=== PATIENT | female | born 1945 | race Caucasian/White ===

== ENCOUNTER 2020-05-20 09:43 | Inpatient (IN) | payer MEDICARE, OTHER ==
[2020-05-20] MEDS ORDERED: Furosemide 20 MG/2 ML VIAL IV ONE ×3 (10:09→16:30)
--- NOTE | 2020-05-20 10:23 | EDM.PDOC ---
ED HPI GENERAL MEDICAL PROBLEM - General Chief Complaint: General Stated Complaint: SWOLLEN LEGS Time Seen by Provider: 05/20/20 09:50 Source of Information: Reports: Patient, Family History Limitations: Reports: No Limitations - History of Present Illness INITIAL COMMENTS - FREE TEXT/NARRATIVE: Patient comes into the emergency department with complaints of bilateral lower extremity swelling. 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 Patient was given 3-day course of antibiotic clindamycin which she is not sure what it was for but did complete that on Saturday however she has continued to increase in swelling in bilateral lower extremities. She also states that she is fallen 3 different times in the last 2 days related to the increase in swelling of lower extremities. She states that her legs are extremely heavy and problematic to get around. She does have peripheral neuropathy related concerns and is on gabapentin to help with that. She states that she does not have much feeling in either lower extremities on a normal day. She denies having any fever, nausea vomiting, or chest pain. She does state that she has an increased amount of fatigue and shortness of breath in the last 2 days unable to ambulate as long as she normally does. She denies any other concerns or complaints at this time. She denies any covid-19 symptoms at the present time. Onset: Gradual Location: Reports: Lower Extremity, Left, Lower Extremity, Right Quality: Reports: Other (heavy feeling ) Severity: Moderate Improves with: Reports: None Worsens with: Reports: None Associated Symptoms: Reports: No Other Symptoms - Related Data Allergies Allergy/AdvReac Type Severity Reaction Status Date / Time Penicillins Allergy Cannot Verified 05/20/20 10:11 Remember solifenacin [From Vesicare] Allergy Cannot Verified 05/20/20 10:12 Remember sodium pentathol Allergy Other Uncoded 05/20/20 10:12 ED ROS GENERAL - Review of Systems Review Of Systems: Comprehensive ROS is negative, except as noted in HPI. Constitutional: Reports: No Symptoms HEENT: Reports: No Symptoms Respiratory: Reports: No Symptoms Cardiovascular: Reports: No Symptoms Endocrine: Reports: No Symptoms GI/Abdominal: Reports: No Symptoms : Reports: No Symptoms Musculoskeletal: Reports: No Symptoms Neurological: Reports: No Symptoms Psychiatric: Reports: No Symptoms Hematologic/Lymphatic: Reports: No Symptoms ED EXAM, GENERAL - Physical Exam Exam: See Below Exam Limited By: No Limitations General Appearance: Alert, WD/WN, No Apparent Distress Throat/Mouth: Normal Inspection, Normal Lips, No Airway Compromise Head: Atraumatic, Normocephalic Neck: Normal Inspection, Supple, Non-Tender, Full Range of Motion Cardiovascular: Normal Peripheral Pulses, Regular Rate, Rhythm, No Edema Peripheral Pulses: 2+: Posterior Tibial (L), Posterior Tibial (R), 4+: Radial (L), Radial (R) GI/Abdominal: Normal Bowel Sounds, Non-Tender, No Distention Back Exam: Normal Inspection, Full Range of Motion Extremities: Pedal Edema (4+ bilateral mid calf edema), Redness Neurological: Alert, Oriented, Normal Cognition Psychiatric: Normal Affect, Normal Mood Skin Exam: Warm, Dry, Intact, No Rash Course - Vital Signs Last Recorded V/S: Last Vital Signs Temp 36.9 C 05/20/20 09:50 Pulse 68 05/20/20 09:50 Resp 16 05/20/20 09:50 BP 108/46 L 05/20/20 09:50 Pulse Ox 99 05/20/20 09:50 - Orders/Labs/Meds Orders: Active Orders 24 hr Category Date Time Status Admission Status [Patient Status] [ADT] Routine ADT 05/20/20 11:18 Ordered EKG Documentation Completion [RC] STAT Care 05/20/20 10:09 Active UA RFX SHIVAM AND CULT IF INDIC [URIN] Stat Lab 05/20/20 10:30 Ordered Sodium Chloride 0.9% [Saline Flush] Med 05/20/20 10:09 Active 10 ml FLUSH ASDIRECTED PRN Peripheral IV Insertion Adult [OM.PC] Stat Oth 05/20/20 10:09 Ordered Medication Orders Sodium Chloride (Saline Flush) 10 ml FLUSH ASDIRECTED PRN PRN Reason: Keep Vein Open Labs: Laboratory Tests 05/20/20 05/20/20 05/20/20 Range/Units 10:28 10:28 10:28 WBC 5.1 (4.0-10.0) x10^3/uL RBC 2.99 L (4.00-5.50) x10^6/uL Hgb 8.7 L (12.0-16.0) g/dL Hct 26.2 L (33.0-47.0) % MCV 87.6 (78.0-93.0) fL MCH 29.1 (26.0-32.0) pg MCHC 33.2 (32.0-36.0) g/dL RDW Coeff of Mal 14.9 (10.0-15.0) % Plt Count 121 L (130-400) x10^3/uL Neut % (Auto) 82.8 H (50.0-80.0) % Lymph % (Auto) 5.3 L (25.0-50.0) % [place] % (Auto) 11.1 H (2.0-11.0) % Eos % (Auto) 0.4 (0.0-4.0) % Baso % (Auto) 0.4 (0.2-1.2) % PT 11.1 (9.5-12.3) SEC INR 1.0 L (2.0-3.5) Sodium 134 L (136-145) mmol/L Potassium 4.2 (3.5-5.1) mmol/L Chloride 99 (98-107) mmol/L Carbon Dioxide 26 (21-32) mmol/L Anion Gap 13.2 (10-20) mmol/L BUN 35 H (7-18) mg/dL Creatinine 1.2 H (0.55-1.02) mg/dL Est Cr Clr Drug Dosing TNP Estimated GFR (MDRD) 44 Glucose 129 H (74-106) mg/dL Lactic Acid (0.4-2.0) mmol/L Calcium 8.2 L (8.5-10.1) mg/dL Corrected Calcium 9.40 (8.5-10.1) mg/dL Total Bilirubin 0.6 (0.2-1.0) mg/dL AST 110 H (15-37) U/L ALT 51 (14-59) U/L Alkaline Phosphatase 428 H (46-116) U/L Troponin I < 0.017 (<=0.056) ng/mL NT-Pro-B Natriuret Pep 2210 H (<=125) pg/mL Total Protein 6.4 (6.4-8.2) g/dL Albumin 2.5 L (3.4-5.0) g/dL Globulin 3.9 Albumin/Globulin Ratio 0.64 07/03/20 Range/Units 10:28 WBC (4.0-10.0) x10^3/uL RBC (4.00-5.50) x10^6/uL Hgb (12.0-16.0) g/dL Hct (33.0-47.0) % MCV (78.0-93.0) fL MCH (26.0-32.0) pg MCHC (32.0-36.0) g/dL RDW Coeff of Mal (10.0-15.0) % Plt Count (130-400) x10^3/uL Neut % (Auto) (50.0-80.0) % Lymph % (Auto) (25.0-50.0) % [place] % (Auto) (2.0-11.0) % Eos % (Auto) (0.0-4.0) % Baso % (Auto) (0.2-1.2) % PT (9.5-12.3) SEC INR (2.0-3.5) Sodium (136-145) mmol/L Potassium (3.5-5.1) mmol/L Chloride (98-107) mmol/L Carbon Dioxide (21-32) mmol/L Anion Gap (10-20) mmol/L BUN (7-18) mg/dL Creatinine (0.55-1.02) mg/dL Est Cr Clr Drug Dosing Estimated GFR (MDRD) Glucose (74-106) mg/dL Lactic Acid 1.9 (0.4-2.0) mmol/L Calcium (8.5-10.1) mg/dL Corrected Calcium (8.5-10.1) mg/dL Total Bilirubin (0.2-1.0) mg/dL AST (15-37) U/L ALT (14-59) U/L Alkaline Phosphatase (46-116) U/L Troponin I (<=0.056) ng/mL NT-Pro-B Natriuret Pep (<=125) pg/mL Total Protein (6.4-8.2) g/dL Albumin (3.4-5.0) g/dL Globulin Albumin/Globulin Ratio Meds: Medications Generic Name Dose Route Start Last Admin Trade Name Freq PRN Reason Stop Dose Admin Sodium Chloride 10 ml 05/20/20 10:09 Saline Flush FLUSH ASDIRECTED PRN Keep Vein Open Discontinued Medications Generic Name Dose Route Start Last Admin Trade Name Gunnarq PRN Reason Stop Dose Admin Furosemide 20 mg 05/20/20 10:09 05/20/20 10:49 Lasix IV 05/20/20 10:10 20 mg ONETIME ONE Administration Departure - Departure Time of Disposition: 11:22 Disposition: Admitted As Inpatient 68 Condition: Fair Clinical Impression: CHF (congestive heart failure) Qualifiers: Heart failure type: unspecified Heart failure chronicity: acute Qualified Code(s): I50.9 - Heart failure, unspecified Fatigue Qualifiers: Fatigue type: unspecified Qualified Code(s): R53.83 - Other fatigue Fluid overload Qualifiers: Hypervolemia type: unspecified Qualified Code(s): E87.70 - Fluid overload, unspecified - Discharge Information *PRESCRIPTION DRUG MONITORING PROGRAM REVIEWED*: Not Applicable *COPY OF PRESCRIPTION DRUG MONITORING REPORT IN PATIENT BIN: Not Applicable Referrals: PCP,None [Primary Care Provider] - Forms: ED Department Discharge Sepsis Event Note (ED) - Evaluation Sepsis Screening Result: No Definite Risk - Focused Exam Vital Signs: Vital Signs Temp Pulse Resp BP Pulse Ox 05/20/20 09:50 36.9 C 68 16 108/46 L 99 - My Orders Last 24 Hours: My Active Orders 05/20/20 10:09 EKG Documentation Completion [RC] STAT Sodium Chloride 0.9% [Saline Flush] 10 ml FLUSH ASDIRECTED PRN Peripheral IV Insertion Adult [OM.PC] Stat 05/20/20 10:30 UA RFX SHIVAM AND CULT IF INDIC [URIN] Stat 05/20/20 11:18 Admission Status [Patient Status] [ADT] Routine - Assessment/Plan Last 24 Hours: My Active Orders 05/20/20 10:09 EKG Documentation Completion [RC] STAT Sodium Chloride 0.9% [Saline Flush] 10 ml FLUSH ASDIRECTED PRN Peripheral IV Insertion Adult [OM.PC] Stat 05/20/20 10:30 UA RFX SHIVAM AND CULT IF INDIC [URIN] Stat 05/20/20 11:18 Admission Status [Patient Status] [ADT] Routine Assessment:: 1. bilateral lower leg edema 2. fluid overload 3. Vascular congestion 4. Acute onset Congestive heart failure Plan: 1. Labs completed in the ER. Results reviewed with the patient 2. IV initiated in the emergency department 3. IV Lasix 20mg given 4. Chest x-ray completed in ER 5. UA ordered in the ER-unable to obtain 6. Consultation completed with Dr. Woodard who is agreeable to admission for further medical management 7. Patient and nursing staff was updated regarding the plan of care 8. Patient and family are agreeable to the above plan of care 9. All questions and concerns were addressed with the patient and family prior to discharge
[2020-05-20 11:00] LABS: ANION GAP 13.2 mmol/L (10-20); CHLORIDE,CL 99 mmol/L (98-107); SODIUM,NA 134 mmol/L (136-145)
--- NOTE | 2020-05-20 11:04 | CR ---
[id number] RAD/RAD Chest PA or AP 1V EXAM: FRONTAL CHEST INDICATION: DECREASED BREATH SOUNDS COMPARISON: None. DISCUSSION: The lung volumes with mild central vascular congestion and basilar atelectasis. No infiltrates are identified. No effusions. Normal heart size. Right subclavian approach port tip overlying the SVC. IMPRESSION: 1. Low lung volumes with mild central vascular crowding and basilar atelectasis. Silverio Mccoy MD 05/20/20 [id number] Thank you for allowing us to participate in the care of your patient.
--- NOTE | 2020-05-20 13:42 | PCM.HP.2 ---
H&P History of Present Illness - General Date of Service: 05/20/20 Admit Problem/Dx: Admission Diagnosis/Problem Admission Diagnosis/Problem CHF, Congestive heart failure Source of Information: Patient, EMS Notes Reviewed (EPIC reviewed (heme-onc notes, recent labs/vitals for comparison)) - History of Present Illness Initial Comments - Free Text/Narative: Katia is a pleasant 74yoF with a PMH of Cholangiocarcinoma (dx 2018), HTN, GERD, Hypothyroidism, and Insomnia who presented to the ED earlier today for evaluation of leg swelling and falls. Patient has recently moved to [place] to be closer to family. Has established with [facility] for treatment of her cancer but has not yet established with a PCP (was planning to in the coming weeks). States that on Saturday of this week she underwent a treatment of 89Y- ibritumomab at [facility]. Did well Saturday and Saturday. On saturday she noted swe lling starting in her legs, had a fall that evening as well as 2 falls on . She denies any pain in her legs, no bruising, denies hitting her head or LOC. All sound to be mechanical in nature although she does endorse some LH/dizziness with standing in the mornings this week. She denies any SOB or cough. No history of heart failure/heart disease. Does endorse decreased urinary output over the last 2 days. ED evaluation is notable for a anemia and thrombocytopenia (chronic), BNP of 2 200, CXR demonstrated vascular congestion, elevated ALP/AST (chronic). She was given a dose of Lasix with good diuresis and admitted for further evaluation/cares. - Related Data Allergies/Adverse Reactions: Allergies Allergy/AdvReac Type Severity Reaction Status Date / Time Penicillins Allergy Cannot Verified 05/20/20 10:11 Remember pentobarbital Allergy Nausea Verified 05/20/20 11:31 solifenacin [From Vesicare] Allergy Cannot Verified 05/20/20 10:12 Remember Home Medications: Home Meds Gabapentin [Neurontin] 300 mg PO TID 05/20/20 [History] Levothyroxine 25 mcg PO ACBREAKFAST 05/20/20 [History] Loteprednol Etabonate [Lotemax] 5 gm EYERT Q48H 05/20/20 [History] Multivitamin [Multi-Vitamin Daily] 1 each PO DAILY 05/20/20 [History] Prednisolone Acetate/Pf [Prednisolone Acet 1% Eye Drop] 1 drop EARLF BID 05/20/20 [History] Prochlorperazine [Compazine] 10 mg PO Q6H PRN 05/20/20 [History] Timolol/Brimonidin/Dorzolam/Pf [Timol 0.5%-Brim 0.15%-Dorzo 2%] 0.5 mg OP DAILY 05/20/20 [History] amLODIPine [Norvasc] 5 mg PO DAILY 05/20/20 [History] hydroCHLOROthiazide [Hydrochlorothiazide] 12.5 mg PO DAILY 05/20/20 [History] lisinopriL [Lisinopril] 20 mg PO DAILY 05/20/20 [History] traZODone HCl [Trazodone HCl] 25 mg PO ASDIRECTED PRN 05/20/20 [History] Past Medical History Cardiovascular History: Reports: Hypertension Endocrine/Metabolic History: Reports: Hypothyroidism Oncologic (Cancer) History: Reports: Liver, Other (See Below) Other Oncologic History: bile duct - Past Surgical History GI Surgical History: Reports: Bariatric Procedure Social & Family History - Tobacco Use Smoking Status *Q: Former Smoker Used Tobacco, but Quit: Yes Month/Year Tobacco Last Used: 1999 H&P Review of Systems - Review of Systems: Review Of Systems: See Below General: Reports: Weakness HEENT: Reports: No Symptoms Pulmonary: Reports: No Symptoms Cardiovascular: Reports: Edema (bilateral legs) Gastrointestinal: Reports: No Symptoms Genitourinary: Reports: Other (decreased urinary output) Musculoskeletal: Reports: Other (weakness) Skin: Reports: No Symptoms Psychiatric: Reports: No Symptoms Neurological: Reports: No Symptoms Hematologic/Lymphatic: Reports: Anemia Immunologic: Reports: No Symptoms Exam - Exam Exam: See Below - Vital Signs Vital Signs: Last Vital Signs Temp 36.7 C 05/20/20 12:16 Pulse 61 05/20/20 12:16 Resp 12 05/20/20 12:16 BP 118/63 05/20/20 12:16 Pulse Ox 99 05/20/20 12:16 - Exam General: Alert, Oriented, Cooperative HEENT: EOMI, Mucosa Moist & Richards Neck: Supple, +2 Carotid Pulse wo Bruit (no JVD noted on exam) Lungs: Clear to Auscultation, Normal Respiratory Effort Cardiovascular: Regular Rate, Regular Rhythm GI/Abdominal Exam: Normal Bowel Sounds, Soft, Non-Tender, No Distention Back Exam: Normal Inspection Extremities: Normal Range of Motion, Non-Tender, Normal Capillary Refill, Pedal Edema (1+ to the knees bialterally) Peripheral Pulses: 1+: Dorsalis Pedis (L), 2+: Carotid (L), Carotid (R), Radial (L), Radial (R), Femoral (R) (catheter site is CDI), Dorsalis Pedis (R) Skin: Warm, Dry Neurological: Strength Equal Bilateral, Normal Speech Neuro Extensive - Mental Status: Alert, Oriented x3, Normal Mood/Affect Psychiatric: Alert, Normal Affect, Normal Mood - Patient Data Lab Results Last 24 hrs: Laboratory Results - last 24 hr 05/20/20 05/20/20 05/20/20 Range/Units 10:28 10:28 10:28 WBC 5.1 (4.0-10.0) x10^3/uL RBC 2.99 L (4.00-5.50) x10^6/uL Hgb 8.7 L (12.0-16.0) g/dL Hct 26.2 L (33.0-47.0) % MCV 87.6 (78.0-93.0) fL MCH 29.1 (26.0-32.0) pg MCHC 33.2 (32.0-36.0) g/dL RDW Coeff of Mal 14.9 (10.0-15.0) % Plt Count 121 L (130-400) x10^3/uL Neut % (Auto) 82.8 H (50.0-80.0) % Lymph % (Auto) 5.3 L (25.0-50.0) % [place] % (Auto) 11.1 H (2.0-11.0) % Eos % (Auto) 0.4 (0.0-4.0) % Baso % (Auto) 0.4 (0.2-1.2) % PT 11.1 (9.5-12.3) SEC INR 1.0 L (2.0-3.5) Sodium 134 L (136-145) mmol/L Potassium 4.2 (3.5-5.1) mmol/L Chloride 99 (98-107) mmol/L Carbon Dioxide 26 (21-32) mmol/L Anion Gap 13.2 (10-20) mmol/L BUN 35 H (7-18) mg/dL Creatinine 1.2 H (0.55-1.02) mg/dL Est Cr Clr Drug Dosing TNP Estimated GFR (MDRD) 44 Glucose 129 H (74-106) mg/dL Lactic Acid (0.4-2.0) mmol/L Calcium 8.2 L (8.5-10.1) mg/dL Corrected Calcium 9.40 (8.5-10.1) mg/dL Total Bilirubin 0.6 (0.2-1.0) mg/dL AST 110 H (15-37) U/L ALT 51 (14-59) U/L Alkaline Phosphatase 428 H (46-116) U/L Troponin I < 0.017 (<=0.056) ng/mL NT-Pro-B Natriuret Pep 2210 H (<=125) pg/mL Total Protein 6.4 (6.4-8.2) g/dL Albumin 2.5 L (3.4-5.0) g/dL Globulin 3.9 Albumin/Globulin Ratio 0.64 Urine Color (YELLOW) Urine Appearance (CLEAR) Urine pH (5.0-8.0) Ur Specific [place] Urine Protein (NEGATIVE) mg/dL Urine Glucose (UA) (NEGATIVE) mg/dL Urine Ketones (NEGATIVE) mg/dL Urine Occult Blood (NEGATIVE) Urine Nitrite (NEGATIVE) Urine Bilirubin (NEGATIVE) Urine Urobilinogen (0.2) EU/dL Ur Leukocyte Esterase (NEGATIVE) 05/20/20 05/20/20 Range/Units 10:28 11:44 WBC (4.0-10.0) x10^3/uL RBC (4.00-5.50) x10^6/uL Hgb (12.0-16.0) g/dL Hct (33.0-47.0) % MCV (78.0-93.0) fL MCH (26.0-32.0) pg MCHC (32.0-36.0) g/dL RDW Coeff of Mal (10.0-15.0) % Plt Count (130-400) x10^3/uL Neut % (Auto) (50.0-80.0) % Lymph % (Auto) (25.0-50.0) % [place] % (Auto) (2.0-11.0) % Eos % (Auto) (0.0-4.0) % Baso % (Auto) (0.2-1.2) % PT (9.5-12.3) SEC INR (2.0-3.5) Sodium (136-145) mmol/L Potassium (3.5-5.1) mmol/L Chloride (98-107) mmol/L Carbon Dioxide (21-32) mmol/L Anion Gap (10-20) mmol/L BUN (7-18) mg/dL Creatinine (0.55-1.02) mg/dL Est Cr Clr Drug Dosing Estimated GFR (MDRD) Glucose (74-106) mg/dL Lactic Acid 1.9 (0.4-2.0) mmol/L Calcium (8.5-10.1) mg/dL Corrected Calcium (8.5-10.1) mg/dL Total Bilirubin (0.2-1.0) mg/dL AST (15-37) U/L ALT (14-59) U/L Alkaline Phosphatase (46-116) U/L Troponin I (<=0.056) ng/mL NT-Pro-B Natriuret Pep (<=125) pg/mL Total Protein (6.4-8.2) g/dL Albumin (3.4-5.0) g/dL Globulin Albumin/Globulin Ratio Urine Color Yellow (YELLOW) Urine Appearance Clear (CLEAR) Urine pH 5.5 (5.0-8.0) Ur Specific [place] 1.010 Urine Protein Negative (NEGATIVE) mg/dL Urine Glucose (UA) Negative (NEGATIVE) mg/dL Urine Ketones Negative (NEGATIVE) mg/dL Urine Occult Blood Negative (NEGATIVE) Urine Nitrite Negative (NEGATIVE) Urine Bilirubin Negative (NEGATIVE) Urine Urobilinogen 0.2 (0.2) EU/dL Ur Leukocyte Esterase Negative (NEGATIVE) Result Diagrams: 05/20/20 10:28 05/20/20 10:28 Sepsis Event Note - Evaluation Sepsis Screening Result: No Definite Risk - Focused Exam Vital Signs: Vital Signs Temp Pulse Resp BP Pulse Ox 05/20/20 12:16 36.7 C 61 12 118/63 99 05/20/20 11:30 36.6 C 70 14 110/55 L 97 05/20/20 09:50 36.9 C 68 16 108/46 L 99 Date Exam was Performed: 05/20/20 Time Exam was Performed: 14:29 - Problem List (1) Fluid overload SNOMED Code(s): 77038785 ICD Code: E87.70 - FLUID OVERLOAD, UNSPECIFIED Status: Acute Current Visit: Yes Qualifiers: Hypervolemia type: unspecified Qualified Code(s): E87.70 - Fluid overload, unspecified (2) CHF (congestive heart failure) SNOMED Code(s): 44072979 ICD Code: I50.9 - HEART FAILURE, UNSPECIFIED Status: Acute Current Visit: Yes Qualifiers: Heart failure type: unspecified Heart failure chronicity: acute Qualified Code(s): I50.9 - Heart failure, unspecified (3) JAMES (acute kidney injury) SNOMED Code(s): 51961201, 09208006 ICD Code: N17.9 - ACUTE KIDNEY FAILURE, UNSPECIFIED Status: Acute Current Visit: Yes (4) Cholangiocarcinoma of biliary tract SNOMED Code(s): 196997313 ICD Code: C22.1 - INTRAHEPATIC BILE DUCT CARCINOMA Status: Acute Current Visit: Yes (5) Weakness SNOMED Code(s): 36799841 ICD Code: R53.1 - WEAKNESS Status: Acute Current Visit: Yes (6) Fatigue SNOMED Code(s): 22625155 ICD Code: R53.83 - OTHER FATIGUE Status: Acute Current Visit: Yes Qualifiers: Fatigue type: unspecified Qualified Code(s): R53.83 - Other fatigue (7) Recurrent falls SNOMED Code(s): 860573307 ICD Code: R29.6 - REPEATED FALLS Status: Acute Current Visit: Yes (8) Anemia SNOMED Code(s): 092768207 ICD Code: D64.9 - ANEMIA, UNSPECIFIED Status: Acute Current Visit: Yes (9) Thrombocytopenia SNOMED Code(s): 196563372 ICD Code: D69.6 - THROMBOCYTOPENIA, UNSPECIFIED Status: Acute Current Visit: Yes (10) Hyponatremia SNOMED Code(s): 18123336 ICD Code: E87.1 - HYPO-OSMOLALITY AND HYPONATREMIA Status: Acute Current Visit: Yes Problem List Initiated/Reviewed/Updated: Yes Orders Last 24hrs: Active Orders 24 hr Category Date Time Status Admission Status [Patient Status] [ADT] Routine ADT 05/20/20 11:18 Active Sodium Chloride 0.9% [Saline Flush] Med 05/20/20 10:09 Active 10 ml FLUSH ASDIRECTED PRN Peripheral IV Insertion Adult [OM.PC] Stat Oth 05/20/20 10:09 Ordered Medication Orders Sodium Chloride (Saline Flush) 10 ml FLUSH ASDIRECTED PRN PRN Reason: Keep Vein Open Assessment/Plan Comment:: Acute: # Fluid Overload (? New onset of CHF in setting of cancer/treatment) # Cholangiocarcinoma, s/p Y90 treatment this week # JAMES (?cardiorenal) - No history of heart failure or renal disease - Patient presenting with swollen legs, no SOB - BNP 2200, CXR demonstrating fluid overload, Cr 1.2 (baseline 0.7-0.8) - ALP and AST elevated (at baseline) - Recieved lasix 20mg IV in the ED - Reviewed new treatment, no particular link to heart failure or renal damage Plan: - Daily Weights, I+Os - Repeat lasix 20mg today - CMP in the AM - Echo will need to be ordered, however does not need to be prompt as she is very clinically stable (able to wait until saturday) # Deconditioning # Falls - patient c/o 3 falls this week and fealing much weaker at baseline Plan: - PT ordered - Ambulate with nursing as able # Anemia, chronic # Thrombocytopenia, chronic - Hgb 8.7, Plt 121 - Review of EPIC demonstrates these to be in her normal range, typical with cancer treatment Plan: - CBC daily # Hyponatremia, mild - Na 134 Plan: - Repeat CMP tomorrow Chronic: Cholangiocarcinoma, diagnosed 2018 - see above HTN - holding lisinopril with JAMES, continue HCTZ, Norvasc Hypothyroid - continue Synthroid Insomnia - continue trazadone Neuropathy - holding gabapentin with JAMES GERD - not currently on medications
[2020-05-20] MEDS: Enoxaparin 40 MG/0.4 ML Syringe SUBCUT SCH (17:02)
[2020-05-20] MEDS ORDERED: Non-Formulary Medication 1 Each (Prednisolone Acetate/Pf [Prednisolone Acet 1% Eye Drop] 1 EARLF SCH (20:00)
[2020-05-20] MEDS ORDERED: Gabapentin 300 MG Cap PO SCH (20:00)
[2020-05-20] MEDS: Acetaminophen 325 MG Tab PO PRN (20:24)
[2020-05-20] MEDS: traZODone 50 MG Tab PO PRN (20:28)
[2020-05-20] MEDS: Sodium Chloride 0.9% 10 ML Syringe FLUSH PRN (20:28)
[2020-05-20] MEDS: prednisoLONE Acetate 1% Ophth Susp 5 ML Bottle**OWN MED EYELF SCH (22:01)
[2020-05-20] MEDS: LOTEMAX 0.5% EYERT SCH (22:03)
[2020-05-21] MEDS: Levothyroxine 25 MCG Tab PO SCH (06:42)
[2020-05-21] MEDS: Enoxaparin 40 MG/0.4 ML Syringe SUBCUT SCH (07:43)
[2020-05-21] MEDS: Hydrochlorothiazide 12.5 MG Cap PO SCH (07:44)
[2020-05-21] MEDS: amLODIPine 5 MG Tab PO SCH (07:44)
[2020-05-21] MEDS: prednisoLONE Acetate 1% Ophth Susp 5 ML Bottle**OWN MED EYELF SCH ×2 (07:56→20:44)
[2020-05-21] MEDS ORDERED: BRIMONIDINE OP SCH (08:00)
[2020-05-21] MEDS ORDERED: TIMOLOL OP SCH (08:00)
[2020-05-21] MEDS ORDERED: BRIMONIDINE EYELF SCH (08:00)
[2020-05-21] MEDS ORDERED: DORZOLAMIDE OP SCH (08:00)
[2020-05-21] MEDS ORDERED: [UNRECOGNIZED DRUG - OTHER] EYELF SCH (08:00)
[2020-05-21] MEDS ORDERED: [UNRECOGNIZED DRUG - OTHER] OP SCH (08:00)
[2020-05-21] MEDS ORDERED: DORZOLAMIDE EYELF SCH (08:00)
[2020-05-21] MEDS ORDERED: TIMOLOL EYELF SCH (08:00)
[2020-05-21 08:14] LABS: CHLORIDE,CL 102 mmol/L (98-107); SODIUM,NA 139 mmol/L (136-145)
[2020-05-21 08:15] LABS: ANION GAP 14.5 mmol/L (10-20)
[2020-05-21] MEDS: TIMOLOL MALEATE 0.5% EYELF SCH (08:16)
--- NOTE | 2020-05-21 08:48 | PCM.PN ---
- General Info Date of Service: 05/21/20 Admission Dx/Problem (Free Text): Admission Diagnosis/Problem Admission Diagnosis/Problem CHF, Congestive heart failure Subjective Update: Sharon reports feeling a bit better this morning. Has had good diuresis yesterday: 1600mL. Patient reports that she is able to lift her legs more this morning, ambulating easier. Denies SOB. Labs reviewed with the patient: electrolytes are good and renal function is improved. We discussed that the Echo would likely not be able to be done until Saturday; but this isn't a big deal as her clinical status/labs are reassuring that we are on the right treatment. We did discuss her living situation. Sounds like she is living in her Son's basement in an '[id number]'. There is a spiral stair-case with 11 steps that she notes she often has to crawl up/down. We discussed that this is not ideal and may be a barrier to a safe return home; therapies will need to assess. 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) Gastrointestinal: Reports: No Symptoms Genitourinary: Reports: No Symptoms Musculoskeletal: Reports: Other (weakness, slightly improved) Neurological: Reports: No Symptoms Psychiatric: Reports: No Symptoms - Patient Data Vitals - Most Recent: Last Vital Signs Temp 37.4 C 05/21/20 06:00 Pulse 62 05/21/20 06:00 Resp 19 05/21/20 06:00 BP 120/70 05/21/20 07:44 Pulse Ox 96 05/21/20 06:00 Weight - Most Recent: 67.948 kg I&O - Last 24 Hours: Intake & Output 05/20/20 05/21/20 05/21/20 22:59 06:59 14:59 Intake Total 300 Output Total 850 450 Balance -550 -450 Lab Results Last 24 Hours: Laboratory Results - last 24 hr 05/20/20 05/20/20 05/20/20 Range/Units 10:28 10:28 10:28 WBC 5.1 (4.0-10.0) x10^3/uL RBC 2.99 L (4.00-5.50) x10^6/uL Hgb 8.7 L (12.0-16.0) g/dL Hct 26.2 L (33.0-47.0) % MCV 87.6 (78.0-93.0) fL MCH 29.1 (26.0-32.0) pg MCHC 33.2 (32.0-36.0) g/dL RDW Coeff of Mal 14.9 (10.0-15.0) % Plt Count 121 L (130-400) x10^3/uL Neut % (Auto) 82.8 H (50.0-80.0) % Lymph % (Auto) 5.3 L (25.0-50.0) % [place] % (Auto) 11.1 H (2.0-11.0) % Eos % (Auto) 0.4 (0.0-4.0) % Baso % (Auto) 0.4 (0.2-1.2) % PT 11.1 (9.5-12.3) SEC INR 1.0 L (2.0-3.5) Sodium 134 L (136-145) mmol/L Potassium 4.2 (3.5-5.1) mmol/L Chloride 99 (98-107) mmol/L Carbon Dioxide 26 (21-32) mmol/L Anion Gap 13.2 (10-20) mmol/L BUN 35 H (7-18) mg/dL Creatinine 1.2 H (0.55-1.02) mg/dL Est Cr Clr Drug Dosing TNP Estimated GFR (MDRD) 44 Glucose 129 H (74-106) mg/dL Lactic Acid (0.4-2.0) mmol/L Calcium 8.2 L (8.5-10.1) mg/dL Corrected Calcium 9.40 (8.5-10.1) mg/dL Total Bilirubin 0.6 (0.2-1.0) mg/dL AST 110 H (15-37) U/L ALT 51 (14-59) U/L Alkaline Phosphatase 428 H (46-116) U/L Troponin I < 0.017 (<=0.056) ng/mL NT-Pro-B Natriuret Pep 2210 H (<=125) pg/mL Total Protein 6.4 (6.4-8.2) g/dL Albumin 2.5 L (3.4-5.0) g/dL Globulin 3.9 Albumin/Globulin Ratio 0.64 Urine Color (YELLOW) Urine Appearance (CLEAR) Urine pH (5.0-8.0) Ur Specific [place] Urine Protein (NEGATIVE) mg/dL Urine Glucose (UA) (NEGATIVE) mg/dL Urine Ketones (NEGATIVE) mg/dL Urine Occult Blood (NEGATIVE) Urine Nitrite (NEGATIVE) Urine Bilirubin (NEGATIVE) Urine Urobilinogen (0.2) EU/dL Ur Leukocyte Esterase (NEGATIVE) 05/20/20 05/20/20 05/21/20 Range/Units 10:28 11:44 07:40 WBC 4.3 (4.0-10.0) x10^3/uL RBC 3.04 L (4.00-5.50) x10^6/uL Hgb 8.8 L (12.0-16.0) g/dL Hct 26.9 L (33.0-47.0) % MCV 88.5 (78.0-93.0) fL MCH 28.9 (26.0-32.0) pg MCHC 32.7 (32.0-36.0) g/dL RDW Coeff of Mal 15.2 H (10.0-15.0) % Plt Count 128 L (130-400) x10^3/uL Neut % (Auto) (50.0-80.0) % Lymph % (Auto) (25.0-50.0) % [place] % (Auto) (2.0-11.0) % Eos % (Auto) (0.0-4.0) % Baso % (Auto) (0.2-1.2) % PT (9.5-12.3) SEC INR (2.0-3.5) Sodium (136-145) mmol/L Potassium (3.5-5.1) mmol/L Chloride (98-107) mmol/L Carbon Dioxide (21-32) mmol/L Anion Gap (10-20) mmol/L BUN (7-18) mg/dL Creatinine (0.55-1.02) mg/dL Est Cr Clr Drug Dosing Estimated GFR (MDRD) Glucose (74-106) mg/dL Lactic Acid 1.9 (0.4-2.0) mmol/L Calcium (8.5-10.1) mg/dL Corrected Calcium (8.5-10.1) mg/dL Total Bilirubin (0.2-1.0) mg/dL AST (15-37) U/L ALT (14-59) U/L Alkaline Phosphatase (46-116) U/L Troponin I (<=0.056) ng/mL NT-Pro-B Natriuret Pep (<=125) pg/mL Total Protein (6.4-8.2) g/dL Albumin (3.4-5.0) g/dL Globulin Albumin/Globulin Ratio Urine Color Yellow (YELLOW) Urine Appearance Clear (CLEAR) Urine pH 5.5 (5.0-8.0) Ur Specific [place] 1.010 Urine Protein Negative (NEGATIVE) mg/dL Urine Glucose (UA) Negative (NEGATIVE) mg/dL Urine Ketones Negative (NEGATIVE) mg/dL Urine Occult Blood Negative (NEGATIVE) Urine Nitrite Negative (NEGATIVE) Urine Bilirubin Negative (NEGATIVE) Urine Urobilinogen 0.2 (0.2) EU/dL Ur Leukocyte Esterase Negative (NEGATIVE) 05/21/20 Range/Units 07:40 WBC (4.0-10.0) x10^3/uL RBC (4.00-5.50) x10^6/uL Hgb (12.0-16.0) g/dL Hct (33.0-47.0) % MCV (78.0-93.0) fL MCH (26.0-32.0) pg MCHC (32.0-36.0) g/dL RDW Coeff of Mal (10.0-15.0) % Plt Count (130-400) x10^3/uL Neut % (Auto) (50.0-80.0) % Lymph % (Auto) (25.0-50.0) % [place] % (Auto) (2.0-11.0) % Eos % (Auto) (0.0-4.0) % Baso % (Auto) (0.2-1.2) % PT (9.5-12.3) SEC INR (2.0-3.5) Sodium 139 (136-145) mmol/L Potassium 4.5 (3.5-5.1) mmol/L Chloride 102 (98-107) mmol/L Carbon Dioxide 27 (21-32) mmol/L Anion Gap 14.5 (10-20) mmol/L BUN 32 H (7-18) mg/dL Creatinine 0.8 (0.55-1.02) mg/dL Est Cr Clr Drug Dosing 50.27 Estimated GFR (MDRD) > 60 Glucose 107 H (74-106) mg/dL Lactic Acid (0.4-2.0) mmol/L Calcium 8.2 L (8.5-10.1) mg/dL Corrected Calcium 9.40 (8.5-10.1) mg/dL Total Bilirubin 0.4 (0.2-1.0) mg/dL AST 92 H (15-37) U/L ALT 45 (14-59) U/L Alkaline Phosphatase 432 H (46-116) U/L Troponin I (<=0.056) ng/mL NT-Pro-B Natriuret Pep (<=125) pg/mL Total Protein 6.4 (6.4-8.2) g/dL Albumin 2.5 L (3.4-5.0) g/dL Globulin 3.9 Albumin/Globulin Ratio 0.64 Urine Color (YELLOW) Urine Appearance (CLEAR) Urine pH (5.0-8.0) Ur Specific [place] Urine Protein (NEGATIVE) mg/dL Urine Glucose (UA) (NEGATIVE) mg/dL Urine Ketones (NEGATIVE) mg/dL Urine Occult Blood (NEGATIVE) Urine Nitrite (NEGATIVE) Urine Bilirubin (NEGATIVE) Urine Urobilinogen (0.2) EU/dL Ur Leukocyte Esterase (NEGATIVE) Med Orders - Current: Current Medications Acetaminophen (Tylenol) 650 mg PO Q4H PRN PRN Reason: Pain (Mild 1-3)/fever Last Admin: 05/20/20 20:24 Dose: 650 mg Documented by: Amlodipine Besylate (Norvasc) 5 mg PO DAILY [facility] Last Admin: 05/21/20 07:44 Dose: 5 mg Documented by: Enoxaparin Sodium (Lovenox) 40 mg SUBCUT DAILY [facility] Last Admin: 05/21/20 07:43 Dose: 40 mg Documented by: Gabapentin (Neurontin) 300 mg PO BEDTIME [facility] Last Admin: 05/20/20 20:24 Dose: 300 mg Documented by: Heparin Sodium (Porcine) (Heparin Lock Flush 100 Units/Ml) 500 units IVPUSH ASDIRECTED PRN PRN Reason: Keep Vein Open Last Admin: 05/21/20 07:43 Dose: 500 units Documented by: Hydrochlorothiazide (Hydrochlorothiazide) 12.5 mg PO DAILY [facility] Last Admin: 05/21/20 07:44 Dose: 12.5 mg Documented by: Levothyroxine Sodium (Levothyroxine) 25 mcg PO ACBREAKFAST [facility] Last Admin: 05/21/20 06:42 Dose: 25 mcg Documented by: Patient's Own MedicationLotemax 0.5% Ophth 5 each EYERT Q48H [facility] Last Admin: 05/20/20 22:03 Dose: 5 each Documented by: Prednisolone Acetate (Pred Forte 1% Ophth Susp) 1 ml EYELF BID [facility] Last Admin: 05/21/20 07:56 Dose: 1 drop Documented by: Prochlorperazine Maleate (Compazine) 10 mg PO Q6H PRN PRN Reason: Nausea Sodium Chloride (Saline Flush) 10 ml FLUSH ASDIRECTED PRN PRN Reason: Keep Vein Open Last Admin: 05/20/20 20:28 Dose: 10 ml Documented by: Timolol Maleate (Timoptic 0.5% Ophth Soln) 0 ml EYELF DAILY [facility] Last Admin: 05/21/20 08:16 Dose: 1 drop Documented by: Trazodone HCl (Trazodone) 25 mg PO BEDTIME PRN PRN Reason: Sleep Last Admin: 05/20/20 20:28 Dose: 25 mg Documented by: Discontinued Medications Furosemide (Lasix) 20 mg IV ONETIME ONE Stop: 05/20/20 10:10 Last Admin: 05/20/20 10:49 Dose: 20 mg Documented by: Furosemide (Lasix) 20 mg IV ONETIME ONE Stop: 05/20/20 16:31 Last Admin: 05/20/20 17:02 Dose: 20 mg Documented by: Non-Formulary Medication (Prednisolone Acetate/Pf [Prednisolone Acet 1% Eye Drop]) 1 drop EARLF BID [facility] Non-Formulary Medication (Timolol/Brimonidin/Dorzolam/Pf [Timol 0.5%-Brim 0.15%- Dorzo 2%]) 0.5 mg OP DAILY [facility] Non-Formulary Medication (Timolol/Brimonidin/Dorzolam/Pf [Timol 0.5%-Brim 0.15%- Dorzo 2%]) 1 drop EYELF DAILY [facility] - Exam General: Alert, Oriented HEENT: Pupils Equal, Pupils Reactive, EOMI, Mucous Membr. Moist/[place]ck: Supple Lungs: Clear to Auscultation, Normal Respiratory Effort Cardiovascular: Regular Rate, Regular Rhythm GI/Abdominal Exam: Normal Bowel Sounds, Soft, Non-Tender, No Organomegaly Extremities: Normal Inspection, Normal Range of Motion, Non-Tender, Normal Capillary Refill, Pedal Edema (1+ to the knee bilaterally) Peripheral Pulses: 2+: Radial (L), Radial (R) Skin: Warm, Dry, Intact Wound/Incisions: Healing Well Neurological: No New Focal Deficit Psy/Mental Status: Alert, Normal Affect, Normal Mood Sepsis Event Note - Evaluation Sepsis Screening Result: No Definite Risk - Focused Exam Vital Signs: Vital Signs Temp Pulse Resp BP BP Pulse Ox 05/21/20 07:44 120/70 05/21/20 06:00 37.4 C 62 19 116/58 L 96 05/21/20 02:00 37.4 C 69 16 112/55 L 94 L 05/20/20 22:00 37.9 C 75 16 120/57 L 95 Date Exam was Performed: 05/21/20 Time Exam was Performed: 08:58 - Problem List & Annotations (1) Fluid overload SNOMED Code(s): 81748344 Code(s): E87.70 - FLUID OVERLOAD, UNSPECIFIED Status: Acute Current Visit: Yes Qualifiers: Hypervolemia type: unspecified Qualified Code(s): E87.70 - Fluid overload, unspecified (2) CHF (congestive heart failure) SNOMED Code(s): 41546896 Code(s): I50.9 - HEART FAILURE, UNSPECIFIED Status: Acute Current Visit: Yes Qualifiers: Heart failure type: unspecified Heart failure chronicity: acute Qualified Code(s): I50.9 - Heart failure, unspecified (3) JAMES (acute kidney injury) SNOMED Code(s): 58730214, 51927630 Code(s): N17.9 - ACUTE KIDNEY FAILURE, UNSPECIFIED Status: Resolved Current Visit: Yes (4) Cholangiocarcinoma of biliary tract SNOMED Code(s): 113600227 Code(s): C22.1 - INTRAHEPATIC BILE DUCT CARCINOMA Status: Acute Current Visit: Yes (5) Weakness SNOMED Code(s): 73638165 Code(s): R53.1 - WEAKNESS Status: Acute Current Visit: Yes (6) Fatigue SNOMED Code(s): 60158462 Code(s): R53.83 - OTHER FATIGUE Status: Acute Current Visit: Yes Qualifiers: Fatigue type: unspecified Qualified Code(s): R53.83 - Other fatigue (7) Recurrent falls SNOMED Code(s): 629267376 Code(s): R29.6 - REPEATED FALLS Status: Acute Current Visit: Yes (8) Anemia SNOMED Code(s): 002530076 Code(s): D64.9 - ANEMIA, UNSPECIFIED Status: Acute Current Visit: Yes (9) Thrombocytopenia SNOMED Code(s): 168103488 Code(s): D69.6 - THROMBOCYTOPENIA, UNSPECIFIED Status: Acute Current Visit: Yes (10) Hyponatremia SNOMED Code(s): 10249517 Code(s): E87.1 - HYPO-OSMOLALITY AND HYPONATREMIA Status: Resolved Current Visit: Yes - Problem List Review Problem List Initiated/Reviewed/Updated: Yes - My Orders Last 24 Hours: My Active Orders 05/20/20 Lunch Regular Diet [DIET] 05/20/20 13:17 Patient Status [ADT] Routine Height and Weight [RC] 07 Oxygen Therapy [RC] PRN VTE/DVT Education [RC] .PRN Vital Signs [RC] 02,06,10,14,18,22 Acetaminophen [Tylenol] 650 mg PO Q4H PRN Resuscitation Status Routine 05/20/20 13:22 Ambulate [RC] 08,20 Intake and Output [RC] ,18 05/20/20 14:06 PT Evaluation and Treatment [CONS] Routine 05/20/20 14:07 Prochlorperazine [Compazine] 10 mg PO Q6H PRN traZODone 25 mg PO BEDTIME PRN 05/20/20 14:11 Communication Order [RC] 05/20/20 16:30 Enoxaparin [Lovenox] 40 mg SUBCUT DAILY 05/20/20 17:12 Heparin Sodium [Heparin Lock Flush 100 Units/ML] 500 units IVPUSH ASDIRECTED PRN 05/20/20 20:00 Gabapentin [Neurontin] 300 mg PO BEDTIME prednisoLONE acetate [Pred Forte 1% Ophth Susp] 1 ml EYELF BID 05/20/20 21:00 Patient's Own Medication [Ptom] 5 each EYERT Q48H 05/21/20 07:00 Levothyroxine 25 mcg PO ACBREAKFAST 05/21/20 08:00 amLODIPine [Norvasc] 5 mg PO DAILY hydroCHLOROthiazide 12.5 mg PO DAILY timoloL maleate [Timoptic 0.5% Ophth Soln] See Dose Instructions EYELF DAILY 05/21/20 08:20 ARASH Hose [Antiembolic Hose] [OM.PC] Routine 05/21/20 08:21 Antiembolic Devices [RC] PER UNIT ROUTINE - Plan Plan:: Acute: # Fluid Overload (? New onset of CHF in setting of cancer/treatment) # Cholangiocarcinoma, s/p Y90 treatment this week # JAMES (?cardiorenal) - RESOLVED - No history of heart failure or renal disease - Patient presenting with swollen legs, no SOB - BNP 2200, CXR demonstrating fluid overload, Cr 1.2 (baseline 0.7-0.8) - ALP and AST elevated (at baseline) - Recieved lasix 20mg IV in the ED - Reviewed new treatment, no particular link to heart failure or renal damage Plan: - Daily Weights, I+Os - Repeat Lasix 20mg IV BID today - CMP in the AM - Echo will need to be ordered, however does not need to be prompt as she is very clinically stable (able to wait until saturday) # Deconditioning # Falls - patient c/o 3 falls this week and feeling much weaker at baseline Plan: - PT ordered - Ambulate with nursing as able # Anemia, chronic # Thrombocytopenia, chronic - Review of EPIC demonstrates these to be in her normal range, - Likely secondary to cancer treatment Plan: - CBC daily # Hyponatremia, resolved Chronic: Cholangiocarcinoma, diagnosed 2017 - see above HTN - continue HCTZ, Norvasc, hold lisinopril (BP stable, monitoring renal function) Hypothyroid - continue Synthroid Insomnia - continue trazadone Neuropathy - gabapentin 300 BID (home was TID) GERD - not currently on medications
[2020-05-21] MEDS: Gabapentin 300 MG Cap PO SCH ×2 (11:13→20:44)
[2020-05-21] MEDS: Furosemide 20 MG/2 ML VIAL IV SCH ×2 (11:13→17:47)
[2020-05-21] MEDS: Sodium Chloride 0.9% 10 ML Syringe FLUSH PRN ×2 (11:18→17:47)
[2020-05-21] MEDS: Prochlorperazine 5 MG Tab PO PRN (17:55)
[2020-05-21] MEDS: traZODone 50 MG Tab PO PRN (20:46)
[2020-05-21] MEDS: Acetaminophen 325 MG Tab PO PRN (20:46)
[2020-05-22] MEDS: Levothyroxine 25 MCG Tab PO SCH (06:39)
[2020-05-22] MEDS: Furosemide 20 MG/2 ML VIAL IV SCH (07:59)
[2020-05-22] MEDS: Sodium Chloride 0.9% 10 ML Syringe FLUSH PRN ×2 (07:59→20:27)
[2020-05-22] MEDS: amLODIPine 5 MG Tab PO SCH (08:02)
[2020-05-22] MEDS: Gabapentin 300 MG Cap PO SCH ×2 (08:02→20:30)
[2020-05-22] MEDS: Hydrochlorothiazide 12.5 MG Cap PO SCH (08:02)
[2020-05-22] MEDS: Enoxaparin 40 MG/0.4 ML Syringe SUBCUT SCH (08:02)
[2020-05-22] MEDS: Acetaminophen 325 MG Tab PO PRN ×2 (08:03→20:30)
[2020-05-22] MEDS: prednisoLONE Acetate 1% Ophth Susp 5 ML Bottle**OWN MED EYELF SCH ×2 (08:04→20:29)
[2020-05-22] MEDS: TIMOLOL MALEATE 0.5% EYELF SCH (08:05)
[2020-05-22 08:22] LABS: ANION GAP 11.3 mmol/L (10-20); CHLORIDE,CL 100 mmol/L (98-107); SODIUM,NA 136 mmol/L (136-145)
--- NOTE | 2020-05-22 08:55 | PCM.PN ---
- General Info Date of Service: 05/22/20 Admission Dx/Problem (Free Text): Admission Diagnosis/Problem Admission Diagnosis/Problem CHF, Congestive heart failure Subjective Update: Sharon reports feeling a bit better this morning. Has had good diuresis yesterday: 3L. Patient is ambulating better per her and nursing report; almost back to baseline. No SOB. Labs reviewed: electrolytes and renal function are stable. We discussed again that the Echo would likely not be able to be done until Saturday. Also revisitted her living situation and my concerns about her returning home to her '[id number]' in her son's basement that would require her to navigate a spiral stair-case; therapies will need to assess prior to safe discharge. 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: Reports: Edema (improving, legs feel less heavy, not quite to baseline) Gastrointestinal: Reports: No Symptoms Genitourinary: Reports: No Symptoms Musculoskeletal: Reports: Other (overall weakness improved) Skin: Reports: No Symptoms Neurological: Reports: No Symptoms Psychiatric: Reports: No Symptoms - Patient Data Vitals - Most Recent: Last Vital Signs Temp 37.3 C 05/22/20 06:00 Pulse 70 05/22/20 06:00 Resp 18 05/22/20 06:00 BP 130/65 05/22/20 08:02 Pulse Ox 98 05/22/20 06:00 Weight - Most Recent: 67.948 kg I&O - Last 24 Hours: Intake & Output 05/21/20 05/22/20 05/22/20 22:59 06:59 14:59 Intake Total 0 300 Output Total 1600 1800 Balance -1600 -1800 300 Lab Results Last 24 Hours: Laboratory Results - last 24 hr 05/22/20 05/22/20 Range/Units 07:56 07:56 WBC 4.5 (4.0-10.0) x10^3/uL RBC 3.08 L (4.00-5.50) x10^6/uL Hgb 9.0 L (12.0-16.0) g/dL Hct 27.5 L (33.0-47.0) % MCV 89.3 (78.0-93.0) fL MCH 29.2 (26.0-32.0) pg MCHC 32.7 (32.0-36.0) g/dL RDW Coeff of Mal 15.2 H (10.0-15.0) % Plt Count 128 L (130-400) x10^3/uL Sodium 136 (136-145) mmol/L Potassium 4.3 (3.5-5.1) mmol/L Chloride 100 (98-107) mmol/L Carbon Dioxide 29 (21-32) mmol/L Anion Gap 11.3 (10-20) mmol/L BUN 23 H (7-18) mg/dL Creatinine 0.9 (0.55-1.02) mg/dL Est Cr Clr Drug Dosing 44.69 mL/min Estimated GFR (MDRD) > 60 Glucose 157 H (74-106) mg/dL Calcium 8.4 L (8.5-10.1) mg/dL Corrected Calcium 9.68 (8.5-10.1) mg/dL Total Bilirubin 0.6 (0.2-1.0) mg/dL AST 80 H (15-37) U/L ALT 42 (14-59) U/L Alkaline Phosphatase 416 H (46-116) U/L Total Protein 6.5 (6.4-8.2) g/dL Albumin 2.4 L (3.4-5.0) g/dL Globulin 4.1 Albumin/Globulin Ratio 0.59 Med Orders - Current: Current Medications Acetaminophen (Tylenol) 650 mg PO Q4H PRN PRN Reason: Pain (Mild 1-3)/fever Last Admin: 05/22/20 08:03 Dose: 650 mg Documented by: Amlodipine Besylate (Norvasc) 5 mg PO DAILY [facility] Last Admin: 05/22/20 08:02 Dose: 5 mg Documented by: Enoxaparin Sodium (Lovenox) 40 mg SUBCUT DAILY [facility] Last Admin: 05/22/20 08:02 Dose: 40 mg Documented by: Furosemide (Lasix) 20 mg IV BIDDIURETIC [facility] Last Admin: 05/22/20 07:59 Dose: 20 mg Documented by: Gabapentin (Neurontin) 300 mg PO BID [facility] Last Admin: 05/22/20 08:02 Dose: 300 mg Documented by: Heparin Sodium (Porcine) (Heparin Lock Flush 100 Units/Ml) 500 units IVPUSH ASDIRECTED PRN PRN Reason: Keep Vein Open Last Admin: 05/22/20 07:59 Dose: 500 units Documented by: Hydrochlorothiazide (Hydrochlorothiazide) 12.5 mg PO DAILY [facility] Last Admin: 05/22/20 08:02 Dose: 12.5 mg Documented by: Levothyroxine Sodium (Levothyroxine) 25 mcg PO ACBREAKFAST [facility] Last Admin: 05/22/20 06:39 Dose: 25 mcg Documented by: Patient's Own MedicationLotemax 0.5% Ophth 5 each EYERT Q48H [facility] Last Admin: 05/20/20 22:03 Dose: 5 each Documented by: Prednisolone Acetate (Pred Forte 1% Ophth Susp) 1 ml EYELF BID [facility] Last Admin: 05/22/20 08:04 Dose: 1 drop Documented by: Prochlorperazine Maleate (Compazine) 10 mg PO Q6H PRN PRN Reason: Nausea Last Admin: 05/21/20 17:55 Dose: 10 mg Documented by: Sodium Chloride (Saline Flush) 10 ml FLUSH ASDIRECTED PRN PRN Reason: Keep Vein Open Last Admin: 05/22/20 07:59 Dose: 10 ml Documented by: Timolol Maleate (Timoptic 0.5% Ophth Soln) 0 ml EYELF DAILY [facility] Last Admin: 05/22/20 08:05 Dose: 1 drop Documented by: Trazodone HCl (Trazodone) 25 mg PO BEDTIME PRN PRN Reason: Sleep Last Admin: 05/21/20 20:46 Dose: 25 mg Documented by: Discontinued Medications Furosemide (Lasix) 20 mg IV ONETIME ONE Stop: 05/20/20 10:10 Last Admin: 05/20/20 10:49 Dose: 20 mg Documented by: Furosemide (Lasix) 20 mg IV ONETIME ONE Stop: 05/20/20 16:31 Last Admin: 05/20/20 17:02 Dose: 20 mg Documented by: Gabapentin (Neurontin) 300 mg PO BEDTIME [facility] Last Admin: 05/20/20 20:24 Dose: 300 mg Documented by: Non-Formulary Medication (Prednisolone Acetate/Pf [Prednisolone Acet 1% Eye Drop]) 1 drop EARLF BID [facility] Non-Formulary Medication (Timolol/Brimonidin/Dorzolam/Pf [Timol 0.5%-Brim 0.15%- Dorzo 2%]) 0.5 mg OP DAILY [facility] Non-Formulary Medication (Timolol/Brimonidin/Dorzolam/Pf [Timol 0.5%-Brim 0.15%- Dorzo 2%]) 1 drop EYELF DAILY [facility] - Exam General: Alert, Oriented HEENT: Pupils Equal, Pupils Reactive, EOMI, Mucous Membr. Moist/[place] Neck: Supple Lungs: Clear to Auscultation, Normal Respiratory Effort Cardiovascular: Regular Rate, Regular Rhythm, No Murmurs GI/Abdominal Exam: Normal Bowel Sounds, Soft, Non-Tender, No Distention (Female) Exam: Normal External Exam, Normal Speculum Exam, Normal Bimanual Exam Back Exam: Normal Inspection, Full Range of Motion Extremities: Normal Inspection, Normal Range of Motion, Non-Tender, Normal Capillary Refill, Pedal Edema (trace-1 to the upper mendez) Skin: Warm, Dry, Intact Wound/Incisions: Healing Well Neurological: No New Focal Deficit, Strength Equal Bilateral Psy/Mental Status: Alert, Normal Affect, Normal Mood Sepsis Event Note - Evaluation Sepsis Screening Result: No Definite Risk - Focused Exam Vital Signs: Vital Signs Temp Pulse Resp BP BP Pulse Ox 05/22/20 08:02 130/65 05/22/20 06:00 37.3 C 70 18 128/65 98 05/22/20 02:00 36.7 C 59 L 20 118/53 L 96 05/21/20 22:00 37.8 C 75 20 92/38 L 95 Date Exam was Performed: 05/22/20 Time Exam was Performed: 08:57 - Problem List & Annotations (1) Fluid overload SNOMED Code(s): 04916123 Code(s): E87.70 - FLUID OVERLOAD, UNSPECIFIED Status: Acute Current Visit: Yes Qualifiers: Hypervolemia type: unspecified Qualified Code(s): E87.70 - Fluid overload, unspecified (2) CHF (congestive heart failure) SNOMED Code(s): 47079424 Code(s): I50.9 - HEART FAILURE, UNSPECIFIED Status: Acute Current Visit: Yes Qualifiers: Heart failure type: unspecified Heart failure chronicity: acute Qualified Code(s): I50.9 - Heart failure, unspecified (3) JAMES (acute kidney injury) SNOMED Code(s): 62798637, 09763595 Code(s): N17.9 - ACUTE KIDNEY FAILURE, UNSPECIFIED Status: Resolved Current Visit: Yes (4) Cholangiocarcinoma of biliary tract SNOMED Code(s): 537918028 Code(s): C22.1 - INTRAHEPATIC BILE DUCT CARCINOMA Status: Acute Current Visit: Yes (5) Weakness SNOMED Code(s): 67546561 Code(s): R53.1 - WEAKNESS Status: Acute Current Visit: Yes (6) Fatigue SNOMED Code(s): 51803659 Code(s): R53.83 - OTHER FATIGUE Status: Acute Current Visit: Yes Qualifiers: Fatigue type: unspecified Qualified Code(s): R53.83 - Other fatigue (7) Recurrent falls SNOMED Code(s): 639732153 Code(s): R29.6 - REPEATED FALLS Status: Acute Current Visit: Yes (8) Anemia SNOMED Code(s): 296590238 Code(s): D64.9 - ANEMIA, UNSPECIFIED Status: Acute Current Visit: Yes (9) Thrombocytopenia SNOMED Code(s): 897930692 Code(s): D69.6 - THROMBOCYTOPENIA, UNSPECIFIED Status: Acute Current Visit: Yes (10) Hyponatremia SNOMED Code(s): 75273582 Code(s): E87.1 - HYPO-OSMOLALITY AND HYPONATREMIA Status: Resolved Current Visit: Yes - Problem List Review Problem List Initiated/Reviewed/Updated: Yes - My Orders Last 24 Hours: My Active Orders 05/21/20 08:00 amLODIPine [Norvasc] 5 mg PO DAILY hydroCHLOROthiazide 12.5 mg PO DAILY timoloL maleate [Timoptic 0.5% Oph Soln] See Dose Instructions EYELF DAILY 05/21/20 08:20 ARASH Hose [Antiembolic Hose] [OM.PC] Routine 05/21/20 08:21 Antiembolic Devices [RC] 05/21/20 09:00 Furosemide [Lasix] 20 mg IV BIDDIURETIC 05/21/20 09:15 Gabapentin [Neurontin] 300 mg PO BID - Plan Plan:: Acute: # Fluid Overload (? New onset of CHF in setting of cancer/treatment) # Cholangiocarcinoma, s/p Y90 treatment this week - No history of heart failure or renal disease - Patient presenting with swollen legs, weakness, recurrent falls, no SOB - BNP 2200, CXR demonstrating fluid overload, Cr 1.2 (baseline 0.7-0.8) - ALP and AST elevated (at baseline) - Briefly reviewed new treatment (Y90), no particular link to heart failure or renal damage Plan: - Daily Weights, I+Os - Will switch to PO lasix (40mg daily) - BMP in the AM - Echo will need to be ordered on Saturday (I could not find order in the system) # Deconditioning # Falls # Concern for living environment safety - patient c/o 3 falls this week and feeling much weaker at baseline - Patient reports difficult with in-law suite in the basement requiring traversing spiral staircase Plan: - PT ordered, strengthening and safety evaluation for return home - Ambulate with nursing as able # Anemia, chronic # Thrombocytopenia, chronic - Review of EPIC demonstrates these to be in her normal range, - Likely secondary to cancer treatment Plan: - CBC daily # Hyponatremia, resolved # JAMES, resolved Chronic: Cholangiocarcinoma, diagnosed 2018 - see above HTN - continue HCTZ, Norvasc, hold lisinopril (BP stable, monitoring renal function) Hypothyroid - continue Synthroid Insomnia - continue trazadone Neuropathy - gabapentin 300 BID (home was TID) GERD - not currently on medications
[2020-05-22] MEDS: Furosemide 40 MG Tab PO SCH (10:42)
[2020-05-22] MEDS: LOTEMAX 0.5% EYERT SCH (20:29)
[2020-05-22] MEDS: traZODone 50 MG Tab PO PRN (20:30)
[2020-05-22] MEDS: Prochlorperazine 5 MG Tab PO PRN (20:47)
[2020-05-23] MEDS: Levothyroxine 25 MCG Tab PO SCH (06:38)
[2020-05-23] MEDS: Sodium Chloride 0.9% 10 ML Syringe FLUSH PRN (06:38)
[2020-05-23 07:09] LABS: ANION GAP 11.9 mmol/L (10-20)
[2020-05-23] MEDS: prednisoLONE Acetate 1% Ophth Susp 5 ML Bottle**OWN MED EYELF SCH (08:03)
[2020-05-23] MEDS: TIMOLOL MALEATE 0.5% EYELF SCH (08:03)
[2020-05-23] MEDS: Enoxaparin 40 MG/0.4 ML Syringe SUBCUT SCH (08:03)
[2020-05-23] MEDS: Gabapentin 300 MG Cap PO SCH (08:04)
[2020-05-23] MEDS: Furosemide 40 MG Tab PO SCH (08:04)
[2020-05-23] MEDS: Hydrochlorothiazide 12.5 MG Cap PO SCH (08:04)
[2020-05-23] MEDS: amLODIPine 5 MG Tab PO SCH (08:04)
--- NOTE | 2020-05-23 09:33 | PCM.DCSUM1 ---
Discharge Summary - Hospital Course Brief History: Ms. Grajeda is a 74 yo female who was admitted with presumed CHF and JAMES after presenting to the ER for evaluation of significant leg swelling and weakness. - Discharge Data Discharge Date: 05/23/20 Discharge Disposition: Home, Self-Care 01 Condition: Good - Referral to Home Health Primary Care Physician: Fadi Chanel MD - Patient Summary/Data Operative Procedure(s) Performed: none Complications: none Consults: Consultations 05/20/20 14:06 PT Evaluation and Treatment [CONS] Routine Labs Pending at D/C: none Recommended Follow-up Testing/Procedures: Echo Planned Operative Procedure(s) after DC: none Hospital Course: She was admitted and treated with IV diuretics. This worked well and her leg swelling improved significantly. With improvement in the swelling, her leg strength also improved. She progressed well with physical therapy and was even able to do stairs today with standby assistance of 1. They did not feel she would require swing bed for further strengthening prior to returning home under the care of her family. Her JAMES improved with diuresis and her renal function remained stable subsequently. Her hospitalization was otherwise uncomplicated. Plan is for an echo to be done outpatient when able. The patient will follow-up in clinic in 2 days to ensure she has had no recurrence of any leg swelling. - Patient Instructions Diet: Usual Diet as Tolerated Activity: As Tolerated Showering/Bathing: May Shower Notify Provider of: Fever, Increased Pain, Swelling and Redness, Drainage, Nausea and/or Vomiting - Discharge Plan *PRESCRIPTION DRUG MONITORING PROGRAM REVIEWED*: Not Applicable *COPY OF PRESCRIPTION DRUG MONITORING REPORT IN PATIENT BIN: Not Applicable Prescriptions/Med Rec: Furosemide [Lasix] 40 mg PO DAILY #30 tablet Home Medications: Home Meds Gabapentin [Neurontin] 300 mg PO TID 05/20/20 [History] Levothyroxine 25 mcg PO ACBREAKFAST 05/20/20 [History] Loteprednol Etabonate [Lotemax] 5 gm EYERT Q48H 05/20/20 [History] Multivitamin [Multi-Vitamin Daily] 1 each PO DAILY 05/20/20 [History] Prednisolone Acetate/Pf [Prednisolone Acet 1% Eye Drop] 1 drop EYELF BID 05/20/20 [History] Prochlorperazine [Compazine] 10 mg PO Q6H PRN 05/20/20 [History] Timolol/Brimonidin/Dorzolam/Pf [Timol 0.5%-Brim 0.15%-Dorzo 2%] 0.5 mg OP DAILY 05/20/20 [History] amLODIPine [Norvasc] 5 mg PO DAILY 05/20/20 [History] hydroCHLOROthiazide [Hydrochlorothiazide] 12.5 mg PO DAILY 05/20/20 [History] lisinopriL [Lisinopril] 20 mg PO DAILY 05/20/20 [History] traZODone HCl [Trazodone HCl] 25 mg PO ASDIRECTED PRN 05/20/20 [History] Furosemide [Lasix] 40 mg PO DAILY #30 tablet 05/23/20 [Rx] Forms: ED Department Discharge Referrals: PCP,None [Ordering Only Provider] - Nenita Narvaez MD [Physician] - 05/25/20 2:30 pm (You have a follow up appt. with Dr. Adalberto Narvaez on 2019 at 2:30--[facility]. You will need to wear a mask.) - Discharge Summary/Plan Comment DC Time >30 min.: No - General Info Date of Service: 05/23/20 Subjective Update: 74 yo female admitted with leg swelling presumed to be secondary to CHF. Doing well this morning. Walked up stairs with PT today so is somewhat short of breath but overall felt this went well. Definitely better than prior to admission. No other shortness of breath and no chest pain. Leg swelling and strength have continued to improve. She is voiding well. She denies any other questions or concerns. She is comfortable discharging home today. Her daughter in law will also be home as she is a teacher and is off for the summer. 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: Reports: No Symptoms Gastrointestinal: Reports: No Symptoms Genitourinary: Reports: No Symptoms Musculoskeletal: Reports: No Symptoms Skin: Reports: No Symptoms Neurological: Reports: No Symptoms Psychiatric: Reports: No Symptoms - Patient Data Vitals - Most Recent: Last Vital Signs Temp 36.5 C 05/23/20 06:00 Pulse 61 05/23/20 06:00 Resp 18 05/23/20 06:00 BP 138/60 05/23/20 08:04 Pulse Ox 97 05/23/20 06:00 Weight - Most Recent: 67.495 kg I&O - Last 24 hours: Intake & Output 05/22/20 05/23/20 05/23/20 22:59 06:59 14:59 Intake Total 300 420 Output Total 1200 700 Balance -900 -700 420 Lab Results - Last 24 hrs: Laboratory Results - last 24 hr 05/23/20 Range/Units 06:30 Sodium 137 (136-145) mmol/L Potassium 3.9 (3.5-5.1) mmol/L Chloride 102 (98-107) mmol/L Carbon Dioxide 27 (21-32) mmol/L Anion Gap 11.9 (10-20) mmol/L BUN 20 H (7-18) mg/dL Creatinine 1.1 H (0.55-1.02) mg/dL Est Cr Clr Drug Dosing 36.56 mL/min Estimated GFR (MDRD) 49 Glucose 82 (74-106) mg/dL Calcium 8.3 L (8.5-10.1) mg/dL Med Orders - Current: Current Medications Acetaminophen (Tylenol) 650 mg PO Q4H PRN PRN Reason: Pain (Mild 1-3)/fever Last Admin: 05/22/20 20:30 Dose: 650 mg Documented by: Amlodipine Besylate (Norvasc) 5 mg PO DAILY [facility] Last Admin: 05/23/20 08:04 Dose: 5 mg Documented by: Enoxaparin Sodium (Lovenox) 40 mg SUBCUT DAILY [facility] Last Admin: 05/23/20 08:03 Dose: 40 mg Documented by: Furosemide (Lasix) 40 mg PO DAILY [facility] Last Admin: 05/23/20 08:04 Dose: 40 mg Documented by: Gabapentin (Neurontin) 300 mg PO BID [facility] Last Admin: 05/23/20 08:04 Dose: 300 mg Documented by: Heparin Sodium (Porcine) (Heparin Lock Flush 100 Units/Ml) 500 units IVPUSH ASDIRECTED PRN PRN Reason: Keep Vein Open Last Admin: 05/23/20 06:39 Dose: 500 units Documented by: Hydrochlorothiazide (Hydrochlorothiazide) 12.5 mg PO DAILY [facility] Last Admin: 05/23/20 08:04 Dose: 12.5 mg Documented by: Levothyroxine Sodium (Levothyroxine) 25 mcg PO ACBREAKFAST [facility] Last Admin: 05/23/20 06:38 Dose: 25 mcg Documented by: Patient's Own MedicationLotemax 0.5% Ophth 5 each EYERT Q48H [facility] Last Admin: 05/22/20 20:29 Dose: 5 each Documented by: Prednisolone Acetate (Pred Forte 1% Ophth Susp) 1 ml EYELF BID [facility] Last Admin: 05/23/20 08:03 Dose: 1 drop Documented by: Prochlorperazine Maleate (Compazine) 10 mg PO Q6H PRN PRN Reason: Nausea Last Admin: 05/22/20 20:47 Dose: 10 mg Documented by: Sodium Chloride (Saline Flush) 10 ml FLUSH ASDIRECTED PRN PRN Reason: Keep Vein Open Last Admin: 05/23/20 06:38 Dose: 20 ml Documented by: Timolol Maleate (Timoptic 0.5% Ophth Soln) 0 ml EYELF DAILY [facility] Last Admin: 05/23/20 08:03 Dose: 1 drop Documented by: Trazodone HCl (Trazodone) 25 mg PO BEDTIME PRN PRN Reason: Sleep Last Admin: 05/22/20 20:30 Dose: 25 mg Documented by: Discontinued Medications Furosemide (Lasix) 20 mg IV ONETIME ONE Stop: 05/20/20 10:10 Last Admin: 05/20/20 10:49 Dose: 20 mg Documented by: Furosemide (Lasix) 20 mg IV ONETIME ONE Stop: 05/20/20 16:31 Last Admin: 05/20/20 17:02 Dose: 20 mg Documented by: Furosemide (Lasix) 20 mg IV BIDDIURETIC [facility] Last Admin: 05/22/20 07:59 Dose: 20 mg Documented by: Gabapentin (Neurontin) 300 mg PO BEDTIME [facility] Last Admin: 05/20/20 20:24 Dose: 300 mg Documented by: Non-Formulary Medication (Prednisolone Acetate/Pf [Prednisolone Acet 1% Eye Drop]) 1 drop EARLF BID [facility] Non-Formulary Medication (Timolol/Brimonidin/Dorzolam/Pf [Timol 0.5%-Brim 0.15%- Dorzo 2%]) 0.5 mg OP DAILY [facility] Non-Formulary Medication (Timolol/Brimonidin/Dorzolam/Pf [Timol 0.5%-Brim 0.15%- Dorzo 2%]) 1 drop EYELF DAILY [facility] - Exam General: Reports: Alert, Oriented, Cooperative, No Acute Distress HEENT: Reports: Pupils Equal, Pupils Reactive, Mucous Membr. Moist/[place] Neck: Reports: Supple, Trachea Midline, No Thyromegaly. Denies: Lymphadenopathy Lungs: Reports: Normal Respiratory Effort, Crackles (at the bases bilaterally) Cardiovascular: Reports: Regular Rate, Regular Rhythm, No Murmurs GI/Abdominal Exam: Normal Bowel Sounds, Soft, Non-Tender, No Organomegaly, No Distention, No Mass Extremities: Normal Inspection, Non-Tender, Normal Capillary Refill, Pedal Edema (1+ bilaterally) Skin: Reports: Warm, Dry, Intact
== END 2020-05-23 12:30 | disposition home or self-care (01) | DRG 292 ==
LOC: VM.ED 09:43 → VM.MS 11:58
PROVIDERS: ADMIT Family Medicine; ATTEND Family Medicine
DX: I11.0 Hypertensive heart disease with heart failure (principal); N17.9 Acute kidney failure, unspecified; E87.1 Hypo-osmolality and hyponatremia; C22.1 Intrahepatic bile duct carcinoma; R53.83 Other fatigue; I50.9 Heart failure, unspecified; C22.8 Malignant neoplasm of liver, primary, unspecified as to type; C78.89 Secondary malignant neoplasm of other digestive organs; Z92.3 Personal history of irradiation; D64.9 Anemia, unspecified; D69.6 Thrombocytopenia, unspecified; E03.9 Hypothyroidism, unspecified; G47.00 Insomnia, unspecified; G62.9 Polyneuropathy, unspecified; R29.6 Repeated falls; K21.9 Gastro-esophageal reflux disease without esophagitis; Z79.890 Hormone replacement therapy; Z79.899 Other long term (current) drug therapy; Z88.0 Allergy status to penicillin; Z88.1 Allergy status to other antibiotic agents; Z88.8 Allergy status to other drugs, medicaments and biological substances; Z98.84 Bariatric surgery status; Z87.891 Personal history of nicotine dependence
CPT/HCPCS: 71045; 80053; 81003; 83605; 83880; 84484; 85025; 85610; 93005; J1940; 80048; 85027; 96374; 97161-GP; 99284-25; 99284-GF; A9270-GY; J1642; J1650; Q0164

== ENCOUNTER 2020-07-14 19:58 | Observation (INO) | payer MEDICARE ==
--- NOTE | 2020-07-14 20:20 | EDM.PDOC ---
ED HPI GENERAL MEDICAL PROBLEM - General Stated Complaint: LEG SWELLING Time Seen by Provider: 07/14/20 20:05 Source of Information: Reports: Patient, Family History Limitations: Reports: No Limitations - History of Present Illness INITIAL COMMENTS - FREE TEXT/NARRATIVE: Patient comes emergency department today with complaints of increased swelling to her lower extremities as well as shortness of breath. This patient has been struggling over the past couple of months since 21 May with lower extremity edema following some radiation embolization of some pathology in her lower extremities. She has been on Lasix torsemide and they have been changing her dosing over the past couple of weeks. She just recently switch back to Lasix. She weighs herself daily. She is up about 2-1/2 to 3 pounds in the last 2 days. She complains of severe pressure burning pain to her lower extremities and swelling fully bilaterally. She has no history of a clot. She really is struggling being at home by herself. She is needing more assistance. She has been falling multiple times over the last couple of days. She recently had her gabapentin reduced and she has having more pain in her lower extremities. - Related Data Allergies Allergy/AdvReac Type Severity Reaction Status Date / Time Penicillins Allergy Cannot Verified 05/20/20 10:11 Remember pentobarbital Allergy Nausea Verified 05/20/20 11:31 solifenacin [From [facility]ic[facility]] Allergy Cannot Verified 05/20/20 10:12 Remember Home Meds: Home Meds Gabapentin [Neurontin] 300 mg PO TID 05/20/20 [History] Levothyroxine 25 mcg PO ACBREAKFAST 05/20/20 [History] Loteprednol Etabonate [Lotemax] 5 gm EYERT Q48H 05/20/20 [History] Multivitamin [Multi-Vitamin Daily] 1 each PO DAILY 05/20/20 [History] Prednisolone Acetate/Pf [Prednisolone Acet 1% Eye Drop] 1 drop EYELF BID 05/20/20 [History] Prochlorperazine [Compazine] 10 mg PO Q6H PRN 05/20/20 [History] Timolol/Brimonidin/Dorzolam/Pf [Timol 0.5%-Brim 0.15%-Dorzo 2%] 0.5 mg OP DAILY 05/20/20 [History] amLODIPine [Norvasc] 5 mg PO DAILY 05/20/20 [History] hydroCHLOROthiazide [Hydrochlorothiazide] 12.5 mg PO DAILY 05/20/20 [History] lisinopriL [Lisinopril] 20 mg PO DAILY 05/20/20 [History] traZODone HCl [Trazodone HCl] 25 mg PO ASDIRECTED PRN 05/20/20 [History] Furosemide [Lasix] 40 mg PO DAILY #30 tablet 05/23/20 [Rx] Past Medical History HEENT History: Reports: Cataract, Retinal Detachment Cardiovascular History: Reports: Hypertension Gastrointestinal History: Reports: GERD Endocrine/Metabolic History: Reports: Hypothyroidism Oncologic (Cancer) History: Reports: Liver, Other (See Below) Other Oncologic History: bile duct - Past Surgical History GI Surgical History: Reports: Bariatric Procedure Social & Family History - Caffeine Use Caffeine Use: Reports: None ED ROS GENERAL - Review of Systems Review Of Systems: Comprehensive ROS is negative, except as noted in HPI. ED EXAM, GENERAL - Physical Exam Exam: See Below Exam Limited By: No Limitations General Appearance: Alert, WD/WN, No Apparent Distress Nose: Normal Inspection Throat/Mouth: Normal Inspection Head: Atraumatic, Normocephalic Neck: Normal Inspection Respiratory/Chest: No Respiratory Distress, Lungs Clear, No Accessory Muscle Use Cardiovascular: Normal Peripheral Pulses, Regular Rate, Rhythm Peripheral Pulses: 2+: Posterior Tibial (L), Posterior Tibial (R), Dorsalis Pedis (L), Dorsalis Pedis (R) GI/Abdominal: Normal Bowel Sounds, Soft (Female) Exam: Deferred Rectal (Female) Exam: Deferred Back Exam: Normal Inspection Extremities: Pedal Edema (She has hard minimally pitting extensive edema up to the Knees bilaterally. ). No: Normal Inspection (Severe pedal edema no erythema or calf tenderness. ) Neurological: Alert, Oriented, No Motor/Sensory Deficits Psychiatric: Normal Affect, Normal Mood Skin Exam: Warm, Dry, Intact, Normal Color, No Rash EKG INTERPRETATION EKG Date: 07/14/20 Time: 21:44 Rhythm: NSR Rate (Beats/Min): 75 [place]: Normal P-Wave: Present QRS: Normal ST-T: Normal QT: Normal Course - Vital Signs Last Recorded V/S: Last Vital Signs Temp 96.3 F L 07/14/20 22:53 Pulse 75 07/14/20 22:53 Resp 20 07/14/20 22:53 BP 123/61 07/14/20 22:53 Pulse Ox 97 07/14/20 22:53 - Orders/Labs/Meds Orders: Active Orders 24 hr Category Date Time Status EKG Documentation Completion [RC] STAT Care 07/14/20 20:14 Active Labs: Laboratory Tests 07/14/20 07/14/20 Range/Units 20:23 20:23 WBC 4.8 (4.0-10.0) x10^3/uL RBC 2.88 L (4.00-5.50) x10^6/uL Hgb 8.1 L (12.0-16.0) g/dL Hct 25.3 L (33.0-47.0) % MCV 87.8 (78.0-93.0) fL MCH 28.1 (26.0-32.0) pg MCHC 32.0 (32.0-36.0) g/dL RDW Coeff of Mal 14.9 (10.0-15.0) % Plt Count 125 L (130-400) x10^3/uL Neut % (Auto) 74.3 (50.0-80.0) % Lymph % (Auto) 13.5 L (25.0-50.0) % [place] % (Auto) 10.5 (2.0-11.0) % Eos % (Auto) 1.3 (0.0-4.0) % Baso % (Auto) 0.4 (0.2-1.2) % Sodium 141 (136-145) mmol/L Potassium 3.6 (3.5-5.1) mmol/L Chloride 101 (98-107) mmol/L Carbon Dioxide 32 (21-32) mmol/L Anion Gap 11.6 (10-20) mmol/L BUN 23 H (7-18) mg/dL Creatinine 1.1 H (0.55-1.02) mg/dL Est Cr Clr Drug Dosing TNP Estimated GFR (MDRD) 49 Glucose 130 H (74-106) mg/dL Calcium 8.5 (8.5-10.1) mg/dL Troponin I 0.042 (<=0.056) ng/mL NT-Pro-B Natriuret Pep 1843 H (<=125) pg/mL Meds: Medications Discontinued Medications Generic Name Dose Route Start Last Admin Trade Name Gwyn PRN Reason Stop Dose Admin Aspirin 324 mg 07/14/20 22:13 07/14/20 22:40 Aspirin PO 07/14/20 22:14 324 mg ONETIME ONE Administration - Re-Assessments/Exams Free Text/Narrative Re-Assessment/Exam: 07/14/20 20:21 Her Creat on 07/11 1.16 and BUN 23 07/14/20 22:33 Her proBNP is at about baseline just under 2000. Creatinine is at 1.1 as well. Her troponin although being in the normal range is almost elevated. She clearly is struggling at home. With her falls her increased pain in her edema. We have to gently try to diurese her to see if we get some of this fluid off and watch her closely. We should also follow her cardiac enzymes to ensure that she is not having any strain from her congestive heart failure. She really does not feel comfortable going home. They have been trying outpatient management and have clearly failed fairly. Met her into the hospital tonight under my services under observation and I will speak with her primary care provider Dr. Narvaez in the morning who is carbonation equipment tender for the hospital. The patient and her family are comfortable with this plan and their questions ans wered. Departure - Departure Time of Disposition: 21:42 Disposition: Refer to Observation Clinical Impression: Edema, peripheral, Cholangiocarcinoma of biliary tract, Recurrent falls, Weakness, JAMES (acute kidney injury) CHF (congestive heart failure) Qualifiers: Heart failure type: unspecified Heart failure chronicity: acute Qualified Code(s): I50.9 - Heart failure, unspecified Anemia Qualifiers: Anemia type: unspecified type Qualified Code(s): D64.9 - Anemia, unspecified - Discharge Information - Problem List & Annotations (1) CHF (congestive heart failure) SNOMED Code(s): 73572511 Code(s): I50.9 - HEART FAILURE, UNSPECIFIED Status: Acute Current Visit: Yes Qualifiers: Heart failure type: unspecified Heart failure chronicity: acute Qualified Code(s): I50.9 - Heart failure, unspecified (2) Anemia SNOMED Code(s): 228439614 Code(s): D64.9 - ANEMIA, UNSPECIFIED Status: Acute Current Visit: Yes Qualifiers: Anemia type: unspecified type Qualified Code(s): D64.9 - Anemia, unspecified (3) Cholangiocarcinoma of biliary tract SNOMED Code(s): 618299535 Code(s): C22.1 - INTRAHEPATIC BILE DUCT CARCINOMA Status: Acute Current Visit: Yes (4) Weakness SNOMED Code(s): 33842879 Code(s): R53.1 - WEAKNESS Status: Acute Current Visit: Yes (5) Recurrent falls SNOMED Code(s): 673169347 Code(s): R29.6 - REPEATED FALLS Status: Acute Current Visit: Yes (6) Edema, peripheral SNOMED Code(s): 748400962 Code(s): R60.9 - EDEMA, UNSPECIFIED Status: Acute Current Visit: Yes (7) JAMES (acute kidney injury) SNOMED Code(s): 99215969, 37151775 Code(s): N17.9 - ACUTE KIDNEY FAILURE, UNSPECIFIED Status: Acute Current Visit: Yes - Problem List Review Problem List Initiated/Reviewed/Updated: Yes - My Orders Last 24 Hours: My Active Orders 07/14/20 20:14 EKG Documentation Completion [RC] STAT - Assessment/Plan Admission H&P: Please use this note as an admission H&P Last 24 Hours: My Active Orders 07/14/20 20:14 EKG Documentation Completion [RC] STAT Assessment:: A/P Peripheral Edema: Will increase her lasix to 60mg IVP bid. Compression stockings all day. I wonder about adding Spironolactone as well with her liver cancer as a concern for her edema as well. Will leave up to her PCP in the morning for consideration when I speak with her. CHF: Lasix as above. Her last Echo 06/06 shows an EF hyperdynamic left ventricle with 70% ejection fraction and a Grade 2 left ventricular diastolic dysfunction. We will add a daily aspirin with the CHF and the monitoring of the troponin tonight as well. Strict I/O Daily weights. Weakness: This is most likely multifactorial with Cancer, peripheral edema, CHF and deconditioning. PT OT. Anemia: Unsure of the cause at this time although is chronic with normal MCV MCH MCHC ? if anemia of chronic disease. Dr. Narvaez to address. Recurrent Falls: Due most likely to deconditioning as well as peripheral edema. PT/OT/Social work for discharge planning. JAMES: Slowly diurese the patient with lasix and daily labs. Cholangiocarcinoma: No active treatments at this time. Hx of Htn: Continue home meds. VTE: GENEVA score high risk. TEDs and also Lovenox. Sepsis: Daily labs no concern for infection at this time monitor.
[2020-07-14 20:55] LABS: CHLORIDE,CL 101 mmol/L (98-107); SODIUM,NA 141 mmol/L (136-145)
[2020-07-14 20:59] LABS: ANION GAP 11.6 mmol/L (10-20)
--- NOTE | 2020-07-14 21:04 | CR ---
[id number] RAD/RAD Chest PA or AP 1V EXAM: FRONTAL CHEST INDICATION: Shortness of breath. COMPARISON: May 20, 2020. DISCUSSION: Evaluation is mildly limited by hypoinflation which is similar to the previous examination. Mild basilar atelectasis. No acute infiltrates are identified. Right subclavian approach port tip SVC. Normal heart size. Surgical clips in the upper abdomen. IMPRESSION: 1. Low lung volumes. Otherwise negative. Silverio Mccoy MD 07/14/20 [id number] Thank you for allowing us to participate in the care of your patient.
[2020-07-14] MEDS ORDERED: Aspirin 81 MG Tab.Chew PO ONE (22:13)
[2020-07-14] MEDS ORDERED: Furosemide 40 MG/4 ML VIAL IV STA (23:14)
[2020-07-14] MEDS ORDERED: Ciprofloxacin in D5W 400 MG in Premix Bag 1 BAG IV SCH ×2 (23:45)
[2020-07-14] MEDS ORDERED: Lactated Ringers 1,000 ML IV SCH (23:45)
[2020-07-15] MEDS ORDERED: traMADol 50 MG Tab PO PRN (05:10)
[2020-07-15] MEDS: Levothyroxine 25 MCG Tab PO SCH (06:10)
[2020-07-15] MEDS: Sodium Chloride 0.9% 10 ML Syringe FLUSH PRN ×7 (06:23→21:43)
[2020-07-15 07:08] LABS: ANION GAP 9.2 mmol/L (10-20)
[2020-07-15] MEDS ORDERED: Gabapentin 300 MG Cap PO SCH (08:00)
[2020-07-15] MEDS ORDERED: Enoxaparin 40 MG/0.4 ML Syringe SUBCUT SCH (08:00)
[2020-07-15] MEDS: Lisinopril 20 MG Tab PO SCH (09:29)
[2020-07-15] MEDS: Multivitamins with Iron/Calcium/Folic Acid/Minerals Tab PO SCH (09:30)
[2020-07-15] MEDS: Cyanocobalamin (Vitamin B12) 1,000 MCG Tab PO SCH ×2 (09:30→21:36)
[2020-07-15] MEDS: Aspirin 81 MG Tab.EC PO SCH (09:30)
[2020-07-15] MEDS: Furosemide 40 MG/4 ML VIAL IV SCH ×2 (09:31→15:26)
[2020-07-15] MEDS: Prochlorperazine 5 MG Tab PO PRN ×2 (09:34→19:48)
[2020-07-15] MEDS: PREDNISOLONE ACET 1% EYELF SCH ×2 (15:24→19:52)
[2020-07-15] MEDS: EYE EYELF SCH ×2 (15:24→19:52)
--- NOTE | 2020-07-15 16:20 | PCM.PN ---
- General Info Date of Service: 07/15/20 Subjective Update: 74 yo female hospital day #2 admitted to observation after presenting to the ER for evaluation of increased leg swelling, weakness with falls at home, and shortness of breath. Feeling about the same today. Patient and [id number] note she has been doing well up until the past 24 hours. She seems to be following the same pattern she followed after her last cancer treatment. She does not really feel nauseous, just weak and tired. Seeing Dr. Chanel again next week. Leg swelling is down. She does note that her pain has been significantly worse since her gabapentin dose was decreased. Her daughter in law had been concerned about the patient being home alone and feels this has not gone well. A home health referral was entered this week but they have not been able to start this yet. - Review of Systems General: Reports: Weakness, Malaise HEENT: Reports: No Symptoms Pulmonary: Reports: Shortness of Breath. Denies: Cough Cardiovascular: Reports: No Symptoms Gastrointestinal: Reports: No Symptoms Genitourinary: Reports: No Symptoms Musculoskeletal: Reports: No Symptoms Skin: Reports: No Symptoms Neurological: Reports: No Symptoms - Patient Data Vitals - Most Recent: Last Vital Signs Temp 36.7 C 07/15/20 15:10 Pulse 64 07/15/20 15:10 Resp 16 07/15/20 15:10 BP 130/62 07/15/20 15:10 Pulse Ox 100 07/15/20 15:10 Weight - Most Recent: 68.447 kg I&O - Last 24 Hours: Intake & Output 07/15/20 07/15/20 07/15/20 06:59 14:59 22:59 Intake Total 300 360 Output Total 2100 700 Balance -1800 -340 Lab Results Last 24 Hours: Laboratory Results - last 24 hr 07/14/20 07/14/20 07/15/20 Range/Units 20:23 20:23 00:25 WBC 4.8 (4.0-10.0) x10^3/uL RBC 2.88 L (4.00-5.50) x10^6/uL Hgb 8.1 L (12.0-16.0) g/dL Hct 25.3 L (33.0-47.0) % MCV 87.8 (78.0-93.0) fL MCH 28.1 (26.0-32.0) pg MCHC 32.0 (32.0-36.0) g/dL RDW Coeff of Mal 14.9 (10.0-15.0) % Plt Count 125 L (130-400) x10^3/uL Neut % (Auto) 74.3 (50.0-80.0) % Lymph % (Auto) 13.5 L (25.0-50.0) % [place] % (Auto) 10.5 (2.0-11.0) % Eos % (Auto) 1.3 (0.0-4.0) % Baso % (Auto) 0.4 (0.2-1.2) % Sodium 141 (136-145) mmol/L Potassium 3.6 (3.5-5.1) mmol/L Chloride 101 (98-107) mmol/L Carbon Dioxide 32 (21-32) mmol/L Anion Gap 11.6 (10-20) mmol/L BUN 23 H (7-18) mg/dL Creatinine 1.1 H (0.55-1.02) mg/dL Est Cr Clr Drug Dosing TNP Estimated GFR (MDRD) 49 Glucose 130 H (74-106) mg/dL Calcium 8.5 (8.5-10.1) mg/dL Corrected Calcium (8.5-10.1) mg/dL Total Bilirubin (0.2-1.0) mg/dL AST (15-37) U/L ALT (14-59) U/L Alkaline Phosphatase (46-116) U/L Troponin I 0.042 0.037 (<=0.056) ng/mL NT-Pro-B Natriuret Pep 1843 H (<=125) pg/mL Total Protein (6.4-8.2) g/dL Albumin (3.4-5.0) g/dL Globulin Albumin/Globulin Ratio 07/15/20 07/15/20 07/15/20 Range/Units 06:20 06:20 15:20 WBC 3.5 L 3.6 L (4.0-10.0) x10^3/uL RBC 2.56 L 2.63 L (4.00-5.50) x10^6/uL Hgb 7.1 L 7.4 L (12.0-16.0) g/dL Hct 22.7 L 23.4 L (33.0-47.0) % MCV 88.7 89.0 (78.0-93.0) fL MCH 27.7 28.1 (26.0-32.0) pg MCHC 31.3 L 31.6 L (32.0-36.0) g/dL RDW Coeff of Mal 14.9 14.8 (10.0-15.0) % Plt Count 118 L 108 L (130-400) x10^3/uL Neut % (Auto) 67.2 70.1 (50.0-80.0) % Lymph % (Auto) 17.1 L 18.7 L (25.0-50.0) % [place] % (Auto) 14.0 H 9.9 (2.0-11.0) % Eos % (Auto) 1.1 0.8 (0.0-4.0) % Baso % (Auto) 0.6 0.5 (0.2-1.2) % Sodium 143 (136-145) mmol/L Potassium 3.2 L (3.5-5.1) mmol/L Chloride 104 (98-107) mmol/L Carbon Dioxide 33 H (21-32) mmol/L Anion Gap 9.2 L (10-20) mmol/L BUN 21 H (7-18) mg/dL Creatinine 1.0 (0.55-1.02) mg/dL Est Cr Clr Drug Dosing 40.22 Estimated GFR (MDRD) 55 Glucose 87 (74-106) mg/dL Calcium 8.3 L (8.5-10.1) mg/dL Corrected Calcium 9.66 (8.5-10.1) mg/dL Total Bilirubin 0.5 (0.2-1.0) mg/dL AST 45 H (15-37) U/L ALT 31 (14-59) U/L Alkaline Phosphatase 341 H (46-116) U/L Troponin I 0.048 (<=0.056) ng/mL NT-Pro-B Natriuret Pep (<=125) pg/mL Total Protein 6.3 L (6.4-8.2) g/dL Albumin 2.3 L (3.4-5.0) g/dL Globulin 4.0 Albumin/Globulin Ratio 0.58 Med Orders - Current: Current Medications Amlodipine Besylate (Norvasc) 5 mg PO BEDTIME [facility] Aspirin (Halfprin) 81 mg PO WITHBREAKFAST [facility] Last Admin: 07/15/20 09:30 Dose: 81 mg Documented by: Cyanocobalamin (Vitamin B12) 1,000 mcg PO BID [facility] Last Admin: 07/15/20 09:30 Dose: 1,000 mcg Documented by: Enoxaparin Sodium (Lovenox) 40 mg SUBCUT DAILY [facility] Last Admin: 07/15/20 09:30 Dose: 40 mg Documented by: Furosemide (Lasix) 60 mg IV BIDDIURETIC [facility] Last Admin: 07/15/20 15:26 Dose: 60 mg Documented by: Gabapentin (Neurontin) 300 mg PO DAILY [facility] Last Admin: 07/15/20 09:30 Dose: 300 mg Documented by: Heparin Sodium (Porcine) (Heparin Lock Flush 100 Units/Ml) 500 units IVPUSH BID [facility] Last Admin: 07/15/20 09:31 Dose: 500 units Documented by: Heparin Sodium (Porcine) (Heparin Lock Flush 100 Units/Ml) 500 units IVPUSH ASDIRECTED PRN PRN Reason: Keep Vein Open Last Admin: 07/15/20 15:27 Dose: 500 units Documented by: Levothyroxine Sodium (Levothyroxine) 25 mcg PO ACBREAKFAST [facility] Last Admin: 07/15/20 06:10 Dose: 25 mcg Documented by: Lisinopril (Prinivil) 20 mg PO DAILY [facility] Last Admin: 07/15/20 09:29 Dose: 20 mg Documented by: Multivitamins/Minerals (Thera M Plus) 1 tab PO DAILY [facility] Last Admin: 07/15/20 09:30 Dose: 1 tab Documented by: Prednisolone Acet 1% Eye Drop Own Med 1 drop EYELF BID [facility] Last Admin: 07/15/20 15:24 Dose: Not Given Documented by: (Loteprednol Etabonate [Lotemax] 5 %)Own Med 0 gm EYERT Q48H [facility] Prochlorperazine Maleate (Compazine) 10 mg PO Q6H PRN PRN Reason: Nausea Last Admin: 07/15/20 09:34 Dose: 10 mg Documented by: Sodium Chloride (Saline Flush) 10 ml FLUSH ASDIRECTED PRN PRN Reason: IV Use Last Admin: 07/15/20 15:26 Dose: 10 ml Documented by: Timolol Maleate (Timoptic 0.5% Ophth Soln) 1 ml EYELF DAILY [facility] Last Admin: 07/15/20 15:24 Dose: Not Given Documented by: Tramadol HCl (Ultram) 50 mg PO Q8H PRN PRN Reason: Pain (severe 7-10) Last Admin: 07/15/20 06:10 Dose: 50 mg Documented by: Trazodone HCl (Trazodone) 25 mg PO BEDTIME [facility] Discontinued Medications Aspirin (Aspirin) 324 mg PO ONETIME ONE Stop: 07/14/20 22:14 Last Admin: 07/14/20 22:40 Dose: 324 mg Documented by: Furosemide (Lasix) 40 mg IV NOW STA Stop: 07/14/20 23:15 Last Admin: 07/15/20 00:25 Dose: 40 mg Documented by: Ciprofloxacin/Dextrose 400 mg/ (Premix) 200 mls @ 200 mls/hr IV Q12H [facility] Lactated Ringer's (Ringers, Lactated) 1,000 mls @ 100 mls/hr IV ASDIRECTED [facility] (Loteprednol Etabonate [Lotemax] 5 %)Own Med 0 gm EYERT Q48H [facility] Last Admin: 07/15/20 05:13 Dose: Not Given Documented by: - Exam General: Alert, Cooperative, No Acute Distress HEENT: Mucous Membr. Moist/[place] Neck: Supple, Trachea Midline, No Thyromegaly. No: Lymphadenopathy Lungs: Clear to Auscultation, Normal Respiratory Effort Cardiovascular: Regular Rate, Regular Rhythm, No Murmurs GI/Abdominal Exam: Normal Bowel Sounds, Soft, Non-Tender, No Distention, No Mass Extremities: Pedal Edema (2+ pitting edema to the knees bilaterally) Peripheral Pulses: 2+: Radial (L), Radial (R) Skin: Warm, Dry, Intact Sepsis Event Note - Evaluation Sepsis Screening Result: No Definite Risk - Focused Exam Vital Signs: Vital Signs Temp Pulse Resp BP BP Pulse Ox 07/15/20 15:10 36.7 C 64 16 130/62 100 07/15/20 09:59 36.8 C 71 16 126/58 L 99 07/15/20 09:29 120/64 07/15/20 04:52 36.9 C 76 17 116/54 L 98 - Problem List & Annotations (1) Edema, peripheral SNOMED Code(s): 971067499 Code(s): R60.9 - EDEMA, UNSPECIFIED Status: Acute Current Visit: Yes (2) Weakness SNOMED Code(s): 46053026 Code(s): R53.1 - WEAKNESS Status: Acute Current Visit: Yes (3) Recurrent falls SNOMED Code(s): 677186448 Code(s): R29.6 - REPEATED FALLS Status: Acute Current Visit: Yes (4) Anemia SNOMED Code(s): 792787207 Code(s): D64.9 - ANEMIA, UNSPECIFIED Status: Acute Current Visit: Yes Qualifiers: Anemia type: unspecified type Qualified Code(s): D64.9 - Anemia, unspecified (5) Thrombocytopenia SNOMED Code(s): 715028534 Code(s): D69.6 - THROMBOCYTOPENIA, UNSPECIFIED Status: Acute Current Visit: No (6) Cholangiocarcinoma of biliary tract SNOMED Code(s): 083624630 Code(s): C22.1 - INTRAHEPATIC BILE DUCT CARCINOMA Status: Chronic Current Visit: Yes (7) Peripheral neuropathy SNOMED Code(s): 299139752 Code(s): G62.9 - POLYNEUROPATHY, UNSPECIFIED Status: Chronic Current Visit: Yes Qualifiers: Peripheral neuropathy type: polyneuropathy, unspecified Qualified Code(s): G62.9 - Polyneuropathy, unspecified - Problem List Review Problem List Initiated/Reviewed/Updated: Yes - My Orders Last 24 Hours: My Active Orders 07/15/20 01:35 Sodium Chloride 0.9% [Saline Flush] 10 ml FLUSH ASDIRECTED PRN - Assessment Assessment:: 74 yo female admitted to observation due to recurrent falls at home. Also admitted for trending of troponins, which remained stable. - Plan Plan:: #1 Peripheral edema - Discussed that this is most likely related to her cancer and associated treatments. - Even when we had her on doses of torsemide that increased her creatinine, she still had swelling in her legs. - Thus, I would not recommend a goal of resolving the fluid. - Rather, would recommend a goal of stability. Will continue lasix at 60 mg BID. #2 Generalized weakness #3 Recurrent Falls - Suspect the cause of her symptoms is the chemotherapy regimen vs the cancer itself. Unclear how long this effect will last vs how fast this will improve. - Social work able to meet with patient and family regarding options for assistance at home. - After discussion, plan will be to start with home health. Depending on how this goes as well as plans after her oncology follow-up next week, further decisions will be made. #4 Anemia #5 Thrombocytopenia - Repeat CBC this afternoon stable. - Will recheck again in the am. - Likely treatment related as well. #6 Cholangiocarcinoma - She has follow-up next week with her oncologist at which time further treatment decisions will be determined. #7 Peripheral neuropathy - Will increase gabapentin back to previous dose. Patient will remain on observation overnight. Plan will be to d/c home tomorrow in the care of her family with plans to set up home health on Saturday. Patient is full code - was discussed on admission. No indication for VTE prophylaxis given anemia and thrombocytopenia as well as expectation for short duration of hospitalization.
[2020-07-15] MEDS ORDERED: amLODIPine 5 MG Tab PO SCH (20:00)
[2020-07-15] MEDS ORDERED: traZODone 50 MG Tab PO SCH (20:00)
[2020-07-15] MEDS: Gabapentin 300 MG Cap PO SCH (21:36)
[2020-07-16] MEDS: Levothyroxine 25 MCG Tab PO SCH (06:06)
[2020-07-16] MEDS: Prochlorperazine 5 MG Tab PO PRN ×2 (07:44→16:51)
[2020-07-16] MEDS: Furosemide 20 MG Tab PO SCH ×2 (07:46→15:46)
[2020-07-16] MEDS: Cyanocobalamin (Vitamin B12) 1,000 MCG Tab PO SCH (07:47)
[2020-07-16] MEDS: Sodium Chloride 0.9% 10 ML Syringe FLUSH PRN ×4 (07:47→15:46)
[2020-07-16] MEDS: Multivitamins with Iron/Calcium/Folic Acid/Minerals Tab PO SCH (07:47)
[2020-07-16] MEDS: Gabapentin 300 MG Cap PO SCH (07:47)
[2020-07-16] MEDS: Lisinopril 20 MG Tab PO SCH (07:47)
[2020-07-16] MEDS: Aspirin 81 MG Tab.EC PO SCH (07:47)
[2020-07-16] MEDS: PREDNISOLONE ACET 1% EYELF SCH (08:04)
[2020-07-16] MEDS: EYE EYELF SCH (08:04)
--- NOTE | 2020-07-16 09:29 | PCM.DCSUM1 ---
Discharge Summary - Hospital Course Brief History: Ms. Grajeda is a 74 yo female with cholangiocarcinoma for which she is on chemotherapy who was admitted for observation to trend troponins and to be provided IV diuresis for leg swelling. - Discharge Data Discharge Date: 07/16/20 Discharge Disposition: Home, W Home Health Agency 06 Condition: Stable - Referral to Home Health Date of Face to Face Encounter: 07/16/20 Reason for Homebound Status: Needs assistance of another person to leave the home, cannot ambulate >20 feet due to significant weakness and leg swelling Primary Care Physician: Nenita Narvaez MD Skilled Need: PT, OT, SN - Discharge Diagnosis/Problem(s) (1) Edema, peripheral SNOMED Code(s): 259623661 ICD Code: R60.9 - EDEMA, UNSPECIFIED Status: Acute Current Visit: Yes (2) Weakness SNOMED Code(s): 20370042 ICD Code: R53.1 - WEAKNESS Status: Acute Current Visit: Yes (3) Recurrent falls SNOMED Code(s): 214114273 ICD Code: R29.6 - REPEATED FALLS Status: Acute Current Visit: Yes (4) Anemia SNOMED Code(s): 400482114 ICD Code: D64.9 - ANEMIA, UNSPECIFIED Status: Acute Current Visit: Yes Qualifiers: Anemia type: unspecified type Qualified Code(s): D64.9 - Anemia, unspecified (5) Thrombocytopenia SNOMED Code(s): 799986127 ICD Code: D69.6 - THROMBOCYTOPENIA, UNSPECIFIED Status: Acute Current Visit: No (6) Cholangiocarcinoma of biliary tract SNOMED Code(s): 886588144 ICD Code: C22.1 - INTRAHEPATIC BILE DUCT CARCINOMA Status: Chronic Current Visit: Yes (7) Peripheral neuropathy SNOMED Code(s): 826123485 ICD Code: G62.9 - POLYNEUROPATHY, UNSPECIFIED Status: Chronic Current Visit: Yes Qualifiers: Peripheral neuropathy type: polyneuropathy, unspecified Qualified Code(s): G62.9 - Polyneuropathy, unspecified (8) Hypothyroidism SNOMED Code(s): 40425535 ICD Code: E03.9 - HYPOTHYROIDISM, UNSPECIFIED Status: Chronic Current Visit: Yes Qualifiers: Hypothyroidism type: unspecified Qualified Code(s): E03.9 - Hypothyroidism, unspecified - Patient Summary/Data Operative Procedure(s) Performed: none Complications: none Consults: Consultations 07/14/20 23:03 Consult to Case Management/Stereo Equipment Installer [CONS] Routine OT Evaluation and Treatment [CONS] Routine PT Evaluation and Treatment [CONS] Routine Labs Pending at D/C: none Recommended Follow-up Testing/Procedures: none Planned Operative Procedure(s) after DC: none Hospital Course: The patient was admitted and troponins were trended. They remained stable and she never had any chest pain. She was given IV and then PO lasix with improvement in leg swelling and shortness of breath. Her weights improved as well. 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 They opted to start with home health and the patient will be admitted to home health tomorrow. They will then be meeting with her oncologist next week to discuss next plans for cancer management. After that and depending on how it goes with home health, further decisions will be made as far as hospice vs assisted living vs other. Her hemoglobin did drop in the first 24 hours but remained stable thereafter and this is felt to be related to her chemotherapy. Her stay was otherwise uncomplicated. - Discharge Plan *PRESCRIPTION DRUG MONITORING PROGRAM REVIEWED*: No *COPY OF PRESCRIPTION DRUG MONITORING REPORT IN PATIENT BIN: No Home Medications: Home Meds Levothyroxine 25 mcg PO ACBREAKFAST 05/20/20 [History] Loteprednol Etabonate [Lotemax] 1 drop EYERT Q48H 05/20/20 [History] Multivitamin [Multi-Vitamin Daily] 1 tab PO DAILY 05/20/20 [History] Prednisolone Acetate/Pf [Prednisolone Acet 1% Eye Drop] 1 drop EYELF BID 05/20/20 [History] Prochlorperazine [Compazine] 10 mg PO Q6H PRN 05/20/20 [History] Timolol/Brimonidin/Dorzolam/Pf [Timol 0.5%-Brim 0.15%-Dorzo 2%] 1 drop EYELF DAILY 05/20/20 [History] amLODIPine [Norvasc] 5 mg PO BEDTIME 05/20/20 [History] lisinopriL [Lisinopril] 20 mg PO DAILY 05/20/20 [History] traZODone HCl [Trazodone HCl] 25 mg PO BEDTIME 05/20/20 [History] Calcium Carbonate [Calcium] 1 tab PO DAILY 07/15/20 [History] Cholecalciferol (Vitamin D3) [Vitamin D3] 1,000 unit PO DAILY 07/15/20 [History] Cyanocobalamin (Vitamin B-12) [Vitamin B-12] 1,000 mcg PO BID 07/15/20 [History] Famotidine 20 mg PO BEDTIME 07/15/20 [History] Omeprazole 20 mg PO DAILY PRN 07/15/20 [History] Pemigatinib [Pemazyre] 13.5 mg PO DAILY 07/15/20 [History] Furosemide [Lasix] 60 mg PO BIDDIURETIC tablet 07/16/20 [Rx] Gabapentin [Neurontin] 300 mg PO BID cap 07/16/20 [Rx] Heparin Sodium [Heparin Lock Flush] 500 units IVPUSH ASDIRECTED PRN syringe 07/16/20 [Rx] Heparin Sodium [Heparin Lock Flush] 500 units IVPUSH BID syringe 07/16/20 [Rx] Forms: ED Department Discharge Referrals: Nenita Narvaez MD [Primary Care Provider] - - Discharge Summary/Plan Comment DC Time >30 min.: No - General Info Date of Service: 07/16/20 Subjective Update: 74 yo female observation day #2 admitted for troponin monitoring and fluid overload. States she is feeling tired. Slept ok. Just fatigued. Comfortable with plan established yesterday. Mentions she is not sure she will continue chemo. 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: Reports: No Symptoms Gastrointestinal: Reports: No Symptoms Genitourinary: Reports: No Symptoms Musculoskeletal: Reports: No Symptoms Skin: Reports: No Symptoms Neurological: Reports: No Symptoms Psychiatric: Reports: No Symptoms - Patient Data Vitals - Most Recent: Last Vital Signs Temp 36.8 C 07/16/20 06:00 Pulse 88 07/16/20 06:00 Resp 16 07/16/20 06:00 BP 100/58 L 07/16/20 07:47 Pulse Ox 95 07/16/20 06:00 Weight - Most Recent: 66.996 kg I&O - Last 24 hours: Intake & Output 07/15/20 07/16/20 07/16/20 22:59 06:59 14:59 Intake Total 180 Output Total 1100 550 Balance -920 -550 Lab Results - Last 24 hrs: Laboratory Results - last 24 hr 07/15/20 07/16/20 Range/Units 15:20 07:43 WBC 3.6 L 4.5 (4.0-10.0) x10^3/uL RBC 2.63 L 2.62 L (4.00-5.50) x10^6/uL Hgb 7.4 L 7.4 L (12.0-16.0) g/dL Hct 23.4 L 23.3 L (33.0-47.0) % MCV 89.0 88.9 (78.0-93.0) fL MCH 28.1 28.2 (26.0-32.0) pg MCHC 31.6 L 31.8 L (32.0-36.0) g/dL RDW Coeff of Mal 14.8 14.9 (10.0-15.0) % Plt Count 108 L 106 L (130-400) x10^3/uL Neut % (Auto) 70.1 78.5 (50.0-80.0) % Lymph % (Auto) 18.7 L 10.3 L (25.0-50.0) % [place] % (Auto) 9.9 9.9 (2.0-11.0) % Eos % (Auto) 0.8 0.9 (0.0-4.0) % Baso % (Auto) 0.5 0.4 (0.2-1.2) % Med Orders - Current: Current Medications Amlodipine Besylate (Norvasc) 5 mg PO BEDTIME [facility] Last Admin: 07/15/20 21:37 Dose: 5 mg Documented by: Aspirin (Halfprin) 81 mg PO WITHBREAKFAST [facility] Last Admin: 07/16/20 07:47 Dose: 81 mg Documented by: Cyanocobalamin (Vitamin B12) 1,000 mcg PO BID [facility] Last Admin: 07/16/20 07:47 Dose: 1,000 mcg Documented by: Furosemide (Lasix) 60 mg PO BIDDIURETIC [facility] Last Admin: 07/16/20 07:46 Dose: 60 mg Documented by: Gabapentin (Neurontin) 300 mg PO BID [facility] Last Admin: 07/16/20 07:47 Dose: 300 mg Documented by: Heparin Sodium (Porcine) (Heparin Lock Flush 100 Units/Ml) 500 units IVPUSH BID [facility] Last Admin: 07/16/20 07:47 Dose: 500 units Documented by: Heparin Sodium (Porcine) (Heparin Lock Flush 100 Units/Ml) 500 units IVPUSH ASDIRECTED PRN PRN Reason: Keep Vein Open Last Admin: 07/15/20 15:27 Dose: 500 units Documented by: Levothyroxine Sodium (Levothyroxine) 25 mcg PO ACBREAKFAST [facility] Last Admin: 07/16/20 06:06 Dose: 25 mcg Documented by: Lisinopril (Prinivil) 20 mg PO DAILY [facility] Last Admin: 07/16/20 07:47 Dose: 20 mg Documented by: Multivitamins/Minerals (Thera M Plus) 1 tab PO DAILY [facility] Last Admin: 07/16/20 07:47 Dose: 1 tab Documented by: Prednisolone Acet 1% Eye Drop Own Med 1 drop EYELF BID [facility] Last Admin: 07/16/20 08:04 Dose: 1 drop Documented by: (Loteprednol Etabonate [Lotemax] 5 %)Own Med 0 gm EYERT Q48H [facility] Last Admin: 07/15/20 22:47 Dose: Not Given Documented by: Prochlorperazine Maleate (Compazine) 10 mg PO Q6H PRN PRN Reason: Nausea Last Admin: 07/16/20 07:44 Dose: 10 mg Documented by: Sodium Chloride (Saline Flush) 10 ml FLUSH ASDIRECTED PRN PRN Reason: IV Use Last Admin: 07/16/20 07:48 Dose: 10 ml Documented by: Timolol Maleate (Timoptic 0.5% Oph Soln) 1 ml EYELF DAILY [facility] Last Admin: 07/16/20 08:04 Dose: 1 drop Documented by: Trazodone HCl (Trazodone) 25 mg PO BEDTIME [facility] Last Admin: 07/15/20 21:36 Dose: 25 mg Documented by: Discontinued Medications Aspirin (Aspirin) 324 mg PO ONETIME ONE Stop: 07/14/20 22:14 Last Admin: 07/14/20 22:40 Dose: 324 mg Documented by: Enoxaparin Sodium (Lovenox) 40 mg SUBCUT DAILY [facility] Last Admin: 07/15/20 09:30 Dose: 40 mg Documented by: Furosemide (Lasix) 40 mg IV NOW STA Stop: 07/14/20 23:15 Last Admin: 07/15/20 00:25 Dose: 40 mg Documented by: Furosemide (Lasix) 60 mg IV BIDDIURETIC [facility] Last Admin: 07/15/20 15:26 Dose: 60 mg Documented by: Gabapentin (Neurontin) 300 mg PO DAILY [facility] Last Admin: 07/15/20 09:30 Dose: 300 mg Documented by: Ciprofloxacin/Dextrose 400 mg/ (Premix) 200 mls @ 200 mls/hr IV Q12H [facility] Lactated Ringer's (Ringers, Lactated) 1,000 mls @ 100 mls/hr IV ASDIRECTED [facility] (Loteprednol Etabonate [Lotemax] 5 %)Own Med 0 gm EYERT Q48H [facility] Last Admin: 07/15/20 05:13 Dose: Not Given Documented by: Tramadol HCl (Ultram) 50 mg PO Q8H PRN PRN Reason: Pain (severe 7-10) Last Admin: 07/15/20 06:10 Dose: 50 mg Documented by: - Exam General: Reports: Alert, Oriented, Cooperative, No Acute Distress HEENT: Reports: Mucous Membr. Moist/[place] Neck: Reports: Supple, Trachea Midline, No Thyromegaly. Denies: Lymphadenopathy Lungs: Reports: Clear to Auscultation, Normal Respiratory Effort Cardiovascular: Reports: Regular Rate, Regular Rhythm, No Murmurs GI/Abdominal Exam: Normal Bowel Sounds, Soft, Non-Tender, No Organomegaly, No Distention, No Mass Extremities: Normal Inspection, Non-Tender, Pedal Edema (1+ to the knees bilaterally) Skin: Reports: Warm, Dry, Intact
== END 2020-07-16 18:38 | disposition home health service (06) ==
LOC: VM.ED 19:58 → VM.MS 22:05
PROVIDERS: ADMIT Nurse Practitioner Family; ATTEND Family Medicine
DX: R60.9 Edema, unspecified (principal); R53.1 Weakness; R29.6 Repeated falls; I11.0 Hypertensive heart disease with heart failure; I50.9 Heart failure, unspecified; D69.6 Thrombocytopenia, unspecified; N17.9 Acute kidney failure, unspecified; C22.1 Intrahepatic bile duct carcinoma; G62.9 Polyneuropathy, unspecified; K21.9 Gastro-esophageal reflux disease without esophagitis; E03.9 Hypothyroidism, unspecified; Z79.890 Hormone replacement therapy; Z88.0 Allergy status to penicillin; Z88.8 Allergy status to other drugs, medicaments and biological substances; Z79.899 Other long term (current) drug therapy
CPT/HCPCS: 36415; 71045; 80048; 80053; 83880; 84484; 85025; 93005; 93010; 96372; 96374; 96376; 97161; 97165; 99220; 99284; A9270; G0378; J1642; J1650; J1940; Q0164